=== PATIENT | male | born 1950 | race Caucasian/White ===

== ENCOUNTER 2016-10-04 18:26 | Inpatient (IN) | payer MEDICARE, OTHER ==
[~2016-10-04] VITALS: Ht 177.8 cm; Wt 119.9 kg
[2016-10-04 18:26] VITALS: BP 153/85
[~2016-10-04 18:26] MED LIST: ALBUTEROL2.5 MG/0.5 INH; ASPIR LOW81 MG PO; ASPIRIN81 M1 PO; ATARAX25 MG PO; B12,B-12,B 12500 MC1 PO; B121000 MCG/1 IM; BAYER ASPIRIN C81 MG PO; CARTIA XT120 MG PO; CIPROFLOXACIN500 MG PO; CYCLOBENZAPRINE10 MG PO; Cleocin150 MG PO; Clopidogrel75 MG PO; DIGOX0.125 MG PO; DIGOXIN0.125 MG PO; DILTIAZEM 24HR120 MG PO; DOXYCYCLINE100 M3 PO; DUONEB 3 MG/3 ML3 M1 INH; DUONEB 3 MG/3 ML3 M1 NEB; DURAGESIC75 MCG/HR TD; Duragesic 75 M75 MCG INTRADERM; FENTANYL75 MCG/HR TD; FINASTERIDE5 MG PO; FLEXERIL10 MG PO; FLOMAX0.4 MG PO; GABAPENTIN TAB600 MG PO; GEMFIBROZIL600 MG PO; GLIPIZIDE5 MG PO; HUMULIN R100 U/ML SC; HYDR25T PO; HYDROCODONE BIT1 T11 PO; IMDUR SA60 M1 PO; IMDUR30 MG PO; ISOSORBIDE30 MG PO; LANOXIN0.125 MG PO; LANTUS100 U/ML SC; LIPITOR40 MG PO; LISINOPRIL AND1 TA2 PO; LISINOPRIL HCTZ1 TA1 PO; LISINOPRIL/HCTZ1 TAB PO; LISINOPRIL10 MG PO; LOPRESSOR25 MG PO; LOPRESSOR50 MG PO; MACROBID100 M1 PO; METOPROLOL SR50 MG PO; METOPROLOL SUCC50 M1 PO; NEURONTIN300 MG PO; NITROSTAT0.4 MG SL; NOVOLOG FLEX100 U/ML SC; NOVOLOG10 ML SC; OXYCODONE10 MG PO; OXYCODONE5 M1 PO; OXYCONTIN10 MG PO; OXYGEN NAS; PLAVIX75 M1 PO; PREDNISONE10 M1 PO; PREDNISONE10 MG PO; PREDNISONE20 M1 PO; PREDNISONE5 MG PO; PRINIVIL10 MG PO; PROSCAR5 M1 PO; PROVENTIL0.09 MG/A1 INH; SIMVASTATIN40 MG PO; SYMBICORT1 AE1 INH; TAMSULOSIN HCL0.4 MG PO; TENORMIN25 MG PO; TOPROL XL100 MG PO; TORADOL10 MG PO; VICO10300 PO; VICODIN HP 6601 TA1 PO; VICODIN HP 6601 TAB PO; VITAMIN D32000 I1 PO; VITAMIN D32000 IU PO; ZETIA10 MG PO; ZOLOFT50 MG PO; ZOLPIDEM5 MG PO
[2016-10-04 18:59] LABS: BASO # 0.1 10*3/uL (0.0-0.1); BASO % 0.6 % (0.0-1.0); EOS # 0.4 10*3/uL (0.0-0.4); EOS % 4.4 % (1.0-4.0); HEMATOCRIT 43.4 % (42.0-52.0); HEMOGLOBIN 13.6 g/dl (14.0-18.0); LYMPH # 2.6 10*3/uL (1.3-4.4); LYMPH % 31.5 % (27.0-41.0); MEAN CELL VOLUME 89.3 fl (80.0-94.0); MEAN CORPUSCULAR HGB CONC 31.3 g/dl (33.0-37.0); MONO # 0.7 10*3/uL (0.1-1.0); MONO % 8.2 % (3.0-9.0); NEUT # 4.5 10*3/uL (2.3-7.9); NEUT % 55.1 % (47.0-73.0); PLATELET COUNT AUTOMATED 215 10*3/uL (130-400); RED BLOOD COUNT 4.86 10*6/uL (4.50-5.90); RED CELL DISTRI WIDTH 12.7 % (0-14.5); WHITE BLOOD COUNT 8.3 10*3/uL (4.8-10.8)
[2016-10-04 19:16] LABS: ALBUMIN 3.4 gm/dl (3.1-4.5); ALKALINE PHOSPHATASE 168 U/L (45-117); BILIRUBIN, TOTAL 0.8 mg/dl (0.2-1.0); BUN 12 mg/dl (7-24); CARBON DIOXIDE 34 mmol/L (21-32); CHLORIDE 102 mmol/L (98-107); EST GLOM FILT AFRICAN AMERICAN > 60 ml/min; GLUCOSE 162 mg/dL (65-99); POTASSIUM 4.1 mmol/L (3.5-5.1); SGOT/AST 28 IU/L (3-35); SGPT/ALT 35 U/L (12-78); SODIUM 142 mmol/L (136-145); TOTAL PROTEIN 6.9 gm/dL (6.4-8.2)
[2016-10-04 19:18] LABS: TROPONIN I < 0.015 ng/ml (<0.045)
[2016-10-04 22:00] VITALS: BP 162/78
[2016-10-04] MEDS ORDERED: LASIX40 MG PO (22:57)
[2016-10-04] MEDS ORDERED: TENORMIN50 MG PO (23:00)
[2016-10-04] MEDS ORDERED: METFORMIN500 MG PO (23:02)
[2016-10-04] MEDS ORDERED: NORCO 10-325 T1 EACH PO (23:09)
[2016-10-05] VITALS: BP 148/64
[2016-10-05 06:17] LABS: HEMOGLOBIN A1c 8.4 % (4.8-5.6)
[2016-10-05 06:40] LABS: BUN 13 mg/dl (7-24); CARBON DIOXIDE 31 mmol/L (21-32); CHLORIDE 97 mmol/L (98-107); CHOLESTEROL 141 mg/dL (<200); EST GLOM FILT AFRICAN AMERICAN > 60 ml/min; FREE T4 1.13 ng/dl (0.76-1.46); GLUCOSE 294 mg/dL (65-99); HDL CHOLESTEROL 48 mg/dl (40-60); LDL CHOLESTEROL 68 mg/dL (9-159); MAGNESIUM 1.9 mg/dL (1.5-2.1); PHOSPHOROUS 3.6 mg/dL (2.5-4.9); POTASSIUM 3.7 mmol/L (3.5-5.1); SODIUM 140 mmol/L (136-145); TRIGLYCERIDES 127 mg/dl (<150); VLDL CHOLESTEROL 25 mg/dL (6-40)
[2016-10-05 06:47] LABS: THYROID STIM HORMONE (HS) 0.696 uIU/ml (0.358-4.75)
[2016-10-05 06:50] LABS: BASO % 0.3 % (0.0-1.0); HEMATOCRIT 47.2 % (42.0-52.0); HEMOGLOBIN 15.1 g/dl (14.0-18.0); IG # 0.1 10*3/uL (0.0-0.1); LYMPH # 0.7 10*3/uL (1.3-4.4); LYMPH % 11.1 % (27.0-41.0); MEAN CELL VOLUME 88.9 fl (80.0-94.0); MEAN CORPUSCULAR HGB 28.4 pg (27.0-31.0); MEAN PLATELET VOLUME 10.4 fl (9.6-12.3); MONO % 0.6 % (3.0-9.0); NEUT # 5.4 10*3/uL (2.3-7.9); PLATELET COUNT AUTOMATED 234 10*3/uL (130-400); RED BLOOD COUNT 5.31 10*6/uL (4.50-5.90); RED CELL DISTRI WIDTH 12.7 % (0-14.5); WHITE BLOOD COUNT 6.2 10*3/uL (4.8-10.8)
[2016-10-05 07:10] LABS: PROTHROMBIN TIME 10.5 SECONDS (9.0-12.4)
[2016-10-05 07:22] LABS: FOLIC ACID 12.12 ng/mL (>5.38); VITAMIN D, 25-HYDROXY 38.3 ng/mL (30-100)
[2016-10-05 08:00] VITALS: BP 156/76
[2016-10-05 12:00] VITALS: BP 148/72
[2016-10-05 16:00] VITALS: BP 130/72
[2016-10-05 20:00] VITALS: BP 138/65
[2016-10-06] VITALS: BP 128/54
[2016-10-06 06:44] LABS: HEMATOCRIT 42.3 % (42.0-52.0); HEMOGLOBIN 13.4 g/dl (14.0-18.0); IG # 0.1 10*3/uL (0.0-0.1); LYMPH # 0.9 10*3/uL (1.3-4.4); LYMPH % 8.3 % (27.0-41.0); MEAN CELL VOLUME 88.3 fl (80.0-94.0); MEAN CORPUSCULAR HGB CONC 31.7 g/dl (33.0-37.0); MEAN PLATELET VOLUME 10.7 fl (9.6-12.3); MONO # 0.4 10*3/uL (0.1-1.0); MONO % 3.3 % (3.0-9.0); NEUT # 9.9 10*3/uL (2.3-7.9); NEUT % 87.9 % (47.0-73.0); PLATELET COUNT AUTOMATED 242 10*3/uL (130-400); RED BLOOD COUNT 4.79 10*6/uL (4.50-5.90); RED CELL DISTRI WIDTH 13.1 % (0-14.5); WHITE BLOOD COUNT 11.3 10*3/uL (4.8-10.8)
[2016-10-06 07:09] LABS: BUN 20 mg/dl (7-24); CARBON DIOXIDE 31 mmol/L (21-32); CHLORIDE 98 mmol/L (98-107); EST GLOM FILT AFRICAN AMERICAN > 60 ml/min; GLUCOSE 343 mg/dL (65-99); POTASSIUM 4.1 mmol/L (3.5-5.1); SODIUM 138 mmol/L (136-145)
[2016-10-06 08:00] VITALS: BP 126/74
[2016-10-06 12:00] VITALS: BP 163/75
[2016-10-06 16:00] VITALS: BP 133/75
[2016-10-06 20:00] VITALS: BP 124/50
[2016-10-07] VITALS: BP 136/53
[2016-10-07 07:04] LABS: BASO % 0.1 % (0.0-1.0); HEMATOCRIT 47.1 % (42.0-52.0); HEMOGLOBIN 14.8 g/dl (14.0-18.0); IG # 0.1 10*3/uL (0.0-0.1); LYMPH # 0.8 10*3/uL (1.3-4.4); LYMPH % 8.2 % (27.0-41.0); MEAN CELL VOLUME 89.2 fl (80.0-94.0); MEAN CORPUSCULAR HGB CONC 31.4 g/dl (33.0-37.0); MEAN PLATELET VOLUME 10.7 fl (9.6-12.3); MONO # 0.3 10*3/uL (0.1-1.0); MONO % 2.6 % (3.0-9.0); NEUT # 9.1 10*3/uL (2.3-7.9); NEUT % 88.4 % (47.0-73.0); PLATELET COUNT AUTOMATED 275 10*3/uL (130-400); RED BLOOD COUNT 5.28 10*6/uL (4.50-5.90); RED CELL DISTRI WIDTH 13.2 % (0-14.5); WHITE BLOOD COUNT 10.2 10*3/uL (4.8-10.8)
[2016-10-07 07:26] LABS: BUN 24 mg/dl (7-24); CARBON DIOXIDE 32 mmol/L (21-32); CHLORIDE 95 mmol/L (98-107); EST GLOM FILT AFRICAN AMERICAN > 60 ml/min; GLUCOSE 399 mg/dL (65-99); POTASSIUM 4.1 mmol/L (3.5-5.1); SODIUM 139 mmol/L (136-145)
[2016-10-07 08:00] VITALS: BP 132/72
[2016-10-07] MEDS ORDERED: LASIX40 MG PO (11:51)
[2016-10-07] MEDS ORDERED: DOXYCYCLINE100 M3 PO (11:51)
[2016-10-07 12:00] VITALS: BP 112/74
[2016-10-07] MEDS ORDERED: KLOR-CON M2020 ME1 PO (13:26)
[2016-10-07 16:00] VITALS: BP 120/54
== END 2016-10-07 16:54 | disposition home or self-care (01) | DRG 291 ==
LOC: ED 18:26 → EDHOLD 20:38 → 5E 20:38
PROVIDERS: Family Medicine; Hospitalist; Internal Medicine Hospice and Palliative Medicine; Registered Nurse
DX: I11.0 Hypertensive heart disease with heart failure (principal); J18.9 Pneumonia, unspecified organism; J96.21 Acute and chronic respiratory failure with hypoxia; J44.1 Chronic obstructive pulmonary disease with (acute) exacerbation; J44.0 Chronic obstructive pulmonary disease with (acute) lower respiratory infection; I50.33 Acute on chronic diastolic (congestive) heart failure; I25.10 Atherosclerotic heart disease of native coronary artery without angina pectoris; E78.2 Mixed hyperlipidemia; E11.65 Type 2 diabetes mellitus with hyperglycemia; M19.90 Unspecified osteoarthritis, unspecified site; M51.37 Other intervertebral disc degeneration, lumbosacral region; M88.9 Osteitis deformans of unspecified bone; E55.9 Vitamin D deficiency, unspecified; E11.40 Type 2 diabetes mellitus with diabetic neuropathy, unspecified; N40.0 Benign prostatic hyperplasia without lower urinary tract symptoms; E11.628 Type 2 diabetes mellitus with other skin complications; G51.0 Bell's palsy; E66.01 Morbid (severe) obesity due to excess calories; Z68.37 Body mass index [BMI] 37.0-37.9, adult; Z88.8 Allergy status to other drugs, medicaments and biological substances; Z91.030 Bee allergy status; Z79.4 Long term (current) use of insulin; Z88.0 Allergy status to penicillin; Z99.81 Dependence on supplemental oxygen; Z91.041 Radiographic dye allergy status; Z90.49 Acquired absence of other specified parts of digestive tract; Z95.818 Presence of other cardiac implants and grafts; Z83.3 Family history of diabetes mellitus; Z82.49 Family history of ischemic heart disease and other diseases of the circulatory system; Z86.73 Personal history of transient ischemic attack (TIA), and cerebral infarction without residual deficits; Z87.442 Personal history of urinary calculi; Z87.891 Personal history of nicotine dependence; Z79.84 Long term (current) use of oral hypoglycemic drugs; Z79.82 Long term (current) use of aspirin; Z79.899 Other long term (current) drug therapy

== ENCOUNTER → 2016-12-27 | Outpatient (CLI) | payer MEDICARE, OTHER ==
[~2016-12-27] MED LIST changes: +KLOR-CON M2020 ME1 PO; +LASIX40 MG PO; +METFORMIN500 MG PO; +NORCO 10-325 T1 EACH PO; +TENORMIN50 MG PO
== END | disposition home or self-care (01) ==
LOC: US 12:21
DX: M79.661 Pain in right lower leg (principal)

== ENCOUNTER 2018-03-09 21:24 | Inpatient (IN) | payer MEDICARE, OTHER ==
[~2018-03-09] VITALS: Ht 177.8 cm; Wt 130.3 kg
--- NOTE | ~2018-03-09 | PR ---
[place], [place] PROGRESS NOTE NAME: [id number] UNIT #: [id number] ROOM: 502 DOCTOR: BRENDA LYNN MD BIRTHDATE: [birth year] DOS: SUBJECTIVE: The patient is sitting in chair, breathing is comfortable, does not appear significantly worsened. He tolerated his IV fluids, which is now off. No exacerbation of CHF is noted. I do not see any notes from any other services today other than Cardiology. It does not appear that Pulmonary has been consulted despite his fairly significant COPD and chronic shortness of breath history. His last echocardiogram was from 12/31/2017, which revealed EF of 50%-55%, moderate LVH. OBJECTIVE: CURRENT VITAL SIGNS: 148/72, heart rate 96, respiratory rate 21, temperature 98.9. GENERAL: Chronically ill appearing, sitting in chair, in no acute distress. Speech is clear. Insight is cogent. LUNGS: Decreased bilaterally. Mild wheeze. CARDIOVASCULAR: Regular rate. No rub. Distant heart sounds. ABDOMEN: Obese, soft and nontender. Cannot appreciate organomegaly given habitus. EXTREMITIES: Chronic lower extremity edema because of chronic insufficiency in sitting position. SKIN: Without diffuse rashes. LABORATORY DATA AND DIAGNOSTICS: White blood cell count 8.1, hemoglobin 12.4, platelets 239. Sodium 143, potassium 3.6, chloride 97, bicarbonate 39, BUN 23, creatinine 1.03, glucose 258 down significantly from the 650 hannah. ASSESSMENT AND PLAN: Acute kidney injury, prerenal in nature, this has improved. Avoid diuretics. Intravenous fluids were given because of low blood pressure, high lactic acid and hyperosmolar state from glucose and osmotic diuresis. His chronic venous insufficiency is producing some of his edema as would some of the mildly low protein levels. I do suspect based on his urinalysis that he does not have any significant nephrotic range proteinuria or diabetic nephropathy. His creatinine has improved. His electrolytes are stable and his chronically elevated carbon dioxide is likely compensatory for disease. I would recommend pulmonary evaluation and optimization of any nebulizers or inhalers. He does not appear to have systolic congestive heart failure or cardiomyopathy. Some hypertensive changes are likely and likely exacerbated by his lung disease. His uncontrolled diabetes has improved and I did order a kidney stone analysis, which he had saved after passing it, I do not have those results yet. No further nephrologic recommendations at this time. [place], [place] PROGRESS NOTE NAME: ALANA RAMSAY UNIT #: [id number] ROOM: 502 DOCTOR: BRENDA LYNN MD BIRTHDATE: [birth year] BRENDA LYNN MD CM:PNTRANS 07 [phone] BRENDA LYNN MD 03/13/18 0114 interface
--- NOTE | ~2018-03-09 | PR ---
[place], [place] PROGRESS NOTE NAME: ALANA RAMSAY UNIT #: [id number] ROOM: 502 DOCTOR: BRENDA LYNN MD BIRTHDATE: [birth year] DOS: 03/13/2018 NEPHROLOGY PROGRESS NOTE TIME OF SERVICE: 11:15 a.m. SUBJECTIVE: Followup of acute kidney injury. The patient is feeling better. Creatinine has improved. OBJECTIVE: VITAL SIGNS: Blood pressures remained somewhat labile, but well controlled today, 124/70, afebrile, heart rate 70s, respiratory rate 18-20. GENERAL: Still reporting some difficulty breathing, has not seen a financial services consultant. No report back from the testing. Breathing is stable overall though. Chronically ill appearing, sitting in chair. EXTREMITIES: Lower extremities from chronic sitting and stasis are edematous, but stable. Anasarca stable. CHEST: Decreased breath sounds. No wheezing. CARDIOVASCULAR: Regular rate. No rub. ABDOMEN: Obese, soft, nontender. SKIN: Without diffuse rashes. NEUROLOGIC: Gross motor and sensation is intact. LABORATORIES AND DIAGNOSTICS: Sodium 145, potassium 3.9, chloride 99, bicarbonate 40, BUN 24, creatinine 0.96. White blood cell count 6.5, hemoglobin 12.5, platelets 259. ASSESSMENT AND PLAN: Acute kidney injury. This has improved. Support blood pressure. IV fluids are held. Given his chronic sitting nature, he has venous insufficiency and trying to do diuretics to edema free legs will be impossible. Nonpharmacologic control, Unna boots, etc., may be a help as well as more mobility optimizing lung function. Pulmonary evaluation reasonable. No other renal recommendations at this time. [place], [place] PROGRESS NOTE NAME: ALANA RAMSAY UNIT #: [id number] ROOM: 502 DOCTOR: BRENDA LYNN MD BIRTHDATE: [birth year] BRENDA LYNN MD CM:PNTRANS [id number] BRENDA LYNN MD 03/27/18 0951 interface
--- NOTE | ~2018-03-09 | PR ---
[place], [place] PROGRESS NOTE [id number] UNIT #: [id number] ROOM: 502 DOCTOR: BRENDA LYNN MD BIRTHDATE: [birth year] DOS: 03/11/2018 SUBJECTIVE: The patient was seen in renal followup of acute kidney injury. He did receive some IV fluids and his sugars are slowly improving. His creatinine is also improving from 1.46 down to 1.01. I only gave him a bit of IV fluids yesterday, but I think he needed given his uncontrolled glucose as well as his elevated lactate of 4.2 yesterday. Apparently, a recheck was not done. His calcium still a bit on the high side, but he is fairly immobile at 9.9. His urinalysis is negative for acute sediment. He was prerenal on his urine indices, though urine creatinine was not ordered by the resident. Electrolytes this morning are stable. His sugars are again coming down. His hemoglobin is stable and his white count is stable. PHYSICAL EXAMINATION: MOST RECENT VITAL SIGNS: 118/68, 97.9, 89, 16, 98% on 6 liters nasal cannula. GENERAL: Chronically ill appearing, obese gentleman, sitting in chair, using nebulizer. Speech is clear. Insight is normal and cogent. LUNGS: Decreased breath sounds bilaterally. Mild wheeze. CARDIOVASCULAR: Regular rate. No rub. Distant heart sounds. ABDOMEN: Obese, soft, nontender. I cannot appreciate any organomegaly given his habitus. EXTREMITIES: Some chronic lower extremity edema because of chronic venous insufficiency most likely and chronic sitting position. LABORATORIES AND DIAGNOSTICS: Reviewed in detail and pertinents are above. ASSESSMENT AND PLAN: Acute kidney injury, prerenal in nature. Avoid excessive diuretics. Intravenous fluids were given yesterday and can be held now. Support blood pressure is necessary. Avoid trying to diurese this gentleman to dry legs and edema-free legs. He has chronic venous insufficiency most likely and some medication-related edema most likely as well. His blood pressures are well controlled. If he is being diuresed some of those, may need to be reduced. His blood sugars were uncontrolled and are coming under better control now. Defer to the primary service. I will send for chemical analysis of his kidney stone that he passed and he was able to obtain. Suspect it was a calcium oxalate stone though based on its appearance. [place], [place] PROGRESS NOTE NAME: ALANA RAMSAY UNIT #: [id number] ROOM: 502 DOCTOR: BRENDA LYNN MD BIRTHDATE: [birth year] BRENDA LYNN MD CM:PNTRANS [id number] BRENDA LYNN MD 03/12/18 0118 interface
--- NOTE | ~2018-03-09 | EKG ---
[place], [place] ELECTROCARDIOGRAM REPORT NAME: ALANA RAMSAY UNIT #: [id number] ROOM: 502 DOCTOR: ANABEL DRAFT REPORT BIRTHDATE: [birth year] [facility] Test Date: 2018-03-09 Test Time: 21:47:33 Pat Name: ALANA RAMSAY Department: Room: [facility] Gender: M Harbour Master: Leila Reyes : 1950 Requested By: ERASMO GOMES Order Number: [id number] Reading MD: Chilo Rutherford MD Measurements Intervals [place] Rate: 107 P: 53 MI: 167 QRS: -13 QRSD: 100 T: 47 QT: 339 QTc: 453 Interpretive Statements Sinus tachycardia Left atrial enlargement RSR' in V1 or V2, right VCD or RVH Baseline wander in lead(s) V1 Compared to ECG 01/04/2018 09:19:13 Right ventricular hypertrophy now present RSR' in V1 or V2 now present Sinus rhythm no longer present Electronically Signed On 03-10-2018 10:51:14 PST by Chilo Rutherford MD CM:EKGRPT:ELECTROCARDIOGRAM REPORT 1051 ERASMO GOMES EPIPHANY DRAFT REPORT ERASMO GOMES
[~2018-03-09 21:24] MED LIST changes: +ANORO ELLIPTA1 EACH INH; +ATENOLOL50 M1 PO; +BIPAP; -DIGOX0.125 MG PO; +DIGOX125 MCG PO; +FUROSEMIDE80 MG PO; +HUMULIN R500 UNIT/1 SQ; +Ipratropium Brom3 ML INH; +LANTUS SOL100 UNIT/1 SQ
[2018-03-09 21:46] VITALS: BP 115/72
[2018-03-09 22:01] LABS: BASO % 0.6 % (0.0-1.0); EOS # 0.2 10*3/uL (0.0-0.4); EOS % 2.6 % (1.0-4.0); HEMATOCRIT 41.5 % (42.0-52.0); HEMOGLOBIN 12.9 g/dl (14.0-18.0); LYMPH % 27.4 % (27.0-41.0); MEAN CELL VOLUME 95.4 fl (80.0-94.0); MEAN CORPUSCULAR HGB 29.7 pg (27.0-31.0); MEAN CORPUSCULAR HGB CONC 31.1 g/dl (33.0-37.0); MEAN PLATELET VOLUME 10.2 fl (9.6-12.3); MONO # 0.6 10*3/uL (0.1-1.0); MONO % 8.2 % (3.0-9.0); NEUT # 4.3 10*3/uL (2.3-7.9); NEUT % 60.1 % (47.0-73.0); PLATELET COUNT AUTOMATED 199 10*3/uL (130-400); RED BLOOD COUNT 4.35 10*6/uL (4.50-5.90); WHITE BLOOD COUNT 7.2 10*3/uL (4.8-10.8)
--- NOTE | 2018-03-09 22:06 | NUR ---
LAB CALLED LA 3.2 CERAMIC PAINTER ANU NOTIFIED
[2018-03-09 22:12] LABS: ACT PARTIAL THROMBO TIME 22.1 SECONDS (20.8-31.5); INTERNATIONAL NORM RATIO 0.9 (2.0-3.5)
[2018-03-09 22:17] LABS: ALKALINE PHOSPHATASE 104 U/L (45-117); BUN 17 mg/dl (7-24); CHLORIDE 98 mmol/L (98-107); CREATININE 1.32 mg/dL (0.70-1.30); LIPASE 67 U/L (73-393); SGOT/AST 21 IU/L (3-35); SGPT/ALT 41 U/L (12-78); SODIUM 144 mmol/L (136-145); TOTAL PROTEIN 6.8 gm/dL (6.4-8.2); TROPONIN I 0.017 ng/ml (<0.045)
[2018-03-10] VITALS (7 sets, daily range): BP systolic 120–140; BP diastolic 63–74
--- NOTE | 2018-03-10 00:37 | NUR ---
PT STATES HAS LIST OF MEDS
--- NOTE | 2018-03-10 01:02 | NUR ---
PT REQUESTING FAN AND RECLINER AT BEDSIDE
--- NOTE | 2018-03-10 02:00 | NUR ---
A 67, admitted to , under the services of RADHA Saucedo DO with a diagnosis of CHF,HYPOXIA. Chief complaint is SHORTNESS OF BREATHE,SWEELING. Patient arrived via BED from ER. Monitor applied. Initial assessment completed. Vital signs taken and recorded. RADHA SAUCEDO DO notified of admission to the unit. Orders received. See assessment for past medical history, medications and allergies. Patient and/or family oriented to unit. [facility] visitation policy reviewed. Clothing/patient valuable form completed. YOLANDA ROE
--- NOTE | 2018-03-10 02:13 | NUR ---
ADMITTING RESIDENT AND FLOOR NURSE ADVISED OF PT EKG WITH ECTOPIC UNIFOCAL PVC WITH OCCASIONAL COUPLETS WHILE PT WAS STANDING TO URINATE
[2018-03-10] MEDS ORDERED: LANTUS SOL100 UNIT/1 SQ (02:46)
--- NOTE | 2018-03-10 03:16 | NUR ---
DR GARCIA NOTIFIED MED REC UP TO DATE PER PATIENT HOME LIST.
[2018-03-10 05:53] LABS: BASO % 0.5 % (0.0-1.0); HEMATOCRIT 41.7 % (42.0-52.0); HEMOGLOBIN 12.7 g/dl (14.0-18.0); LYMPH # 0.7 10*3/uL (1.3-4.4); LYMPH % 12.2 % (27.0-41.0); MEAN CELL VOLUME 95.9 fl (80.0-94.0); MEAN CORPUSCULAR HGB 29.2 pg (27.0-31.0); MEAN CORPUSCULAR HGB CONC 30.5 g/dl (33.0-37.0); MEAN PLATELET VOLUME 10.3 fl (9.6-12.3); MONO # 0.1 10*3/uL (0.1-1.0); NEUT # 4.7 10*3/uL (2.3-7.9); NEUT % 83.7 % (47.0-73.0); PLATELET COUNT AUTOMATED 195 10*3/uL (130-400); RED BLOOD COUNT 4.35 10*6/uL (4.50-5.90); RED CELL DISTRI WIDTH 14.2 % (0-14.5); WHITE BLOOD COUNT 5.6 10*3/uL (4.8-10.8)
--- NOTE | 2018-03-10 06:07 | NUR ---
SPOKE TO BRAXTON AT DR LYNN'S ANSWERING SERVICE REGARDING CONSULT. SHE WILL NOTIFY PHYSICIAN.
[2018-03-10 06:10] LABS: ALBUMIN 3.2 gm/dl (3.1-4.5); ALKALINE PHOSPHATASE 111 U/L (45-117); BUN 24 mg/dl (7-24); CHLORIDE 90 mmol/L (98-107); CREATININE 1.46 mg/dL (0.70-1.30); PHOSPHOROUS 4.2 mg/dL (2.5-4.9); POTASSIUM 4.5 mmol/L (3.5-5.1); SGOT/AST 20 IU/L (3-35); SGPT/ALT 44 U/L (12-78); SODIUM 139 mmol/L (136-145); TOTAL PROTEIN 7.4 gm/dL (6.4-8.2)
--- NOTE | 2018-03-10 06:12 | NUR ---
DR GARCIA NOTIFIED OF BLOOD GLUCOSE 655. PER DR GARCIA COVER PATIENT PER SLIDING SCALE PROTOCOL. NO FURTHER ORDERS.
[2018-03-10 06:13] LABS: TROPONIN I < 0.015 ng/ml (<0.045)
[2018-03-10] MEDS ORDERED: NOVOLOG FL100 UNIT/1 SQ (06:27)
--- NOTE | 2018-03-10 08:18 | NUR ---
PATIENT C/O BACK AND LEFT HIP PAIN. RATED 8/10 ON PAIN SCALE. MEDICATED WITH NORCO PER PRN ORDER. WILL CONTINUE TO MONITOR.
--- NOTE | 2018-03-10 09:30 | NUR ---
PATIENT SITTING UP IN CHAIR. NO FURTHER C/O PAIN AT THIS TIME. NORCO EFFECTIVE. WILL CONTINUE TO MONITOR.
[2018-03-10 15:02] LABS: BILIRUBIN NEGATIVE (NEGATIVE); BLOOD TRACE-INTACT (NEGATIVE); CLARITY SL CLOUDY (CLEAR); COLOR YELLOW (YELLOW); GLUCOSE 3+ (NEGATIVE); KETONE TRACE (NEGATIVE); LEUKO ESTERASE NEGATIVE (NEGATIVE); NITRITE NEGATIVE (NEGATIVE); SPECIFIC GRAVITY <= 1.005 (1.005-1.030); UROBILINOGEN 0.2 E.U./dl (0.2-1.0)
[2018-03-10 15:10] LABS: BACTERIA TRACE; EPITHELIAL CELLS 0-2; WBC 0-2 wbc/hpf (0-5)
[2018-03-11] VITALS: BP 113/57
--- NOTE | 2018-03-11 01:46 | NUR ---
24 HR chart check completed.
--- NOTE | 2018-03-11 04:00 | NUR ---
PATIENT SLEEPING IN RECLINER. DENIES COMPLAINTS OF PAIN OR DISCOMFORT. AROUSES TO VERBAL STIMULI. RESPIRATION REGULAR AND NON-LABORED WITH OXYGEN ON AT 6L VIA N/C. NO SIGNS OR SYMPTOMS OF DISTRESS NOTED. WILL CONTNUE TO MONITOR. CALL LIGHT IN REACH.
[2018-03-11 06:27] LABS: BASO % 0.1 % (0.0-1.0); HEMATOCRIT 39.8 % (42.0-52.0); HEMOGLOBIN 12.1 g/dl (14.0-18.0); LYMPH # 1.2 10*3/uL (1.3-4.4); LYMPH % 13.9 % (27.0-41.0); MEAN CELL VOLUME 95.7 fl (80.0-94.0); MEAN CORPUSCULAR HGB 29.1 pg (27.0-31.0); MEAN CORPUSCULAR HGB CONC 30.4 g/dl (33.0-37.0); MEAN PLATELET VOLUME 10.3 fl (9.6-12.3); MONO # 0.6 10*3/uL (0.1-1.0); MONO % 6.4 % (3.0-9.0); NEUT # 6.9 10*3/uL (2.3-7.9); PLATELET COUNT AUTOMATED 223 10*3/uL (130-400); RED BLOOD COUNT 4.16 10*6/uL (4.50-5.90); RED CELL DISTRI WIDTH 14.6 % (0-14.5); WHITE BLOOD COUNT 8.7 10*3/uL (4.8-10.8)
[2018-03-11 07:02] LABS: CHLORIDE 93 mmol/L (98-107); POTASSIUM 4.1 mmol/L (3.5-5.1); SODIUM 139 mmol/L (136-145)
[2018-03-11 07:05] LABS: BUN 23 mg/dl (7-24); CREATININE 1.01 mg/dL (0.70-1.30)
[2018-03-11 08:00] VITALS: BP 118/68
--- NOTE | 2018-03-11 08:59 | NUR ---
PATIENT MEDICATED FOR C/O BACK AND HIP PAIN 10/21. WILL MONITOR.
--- NOTE | 2018-03-11 09:50 | NUR ---
PATIENT STATED THAT HE WANTED HIS O2 INCREASE BECAUSE HE FELT SOB. P.OX AT THIS TIME =97-98% ON 6LPM NC, INFORMED OF RFEADING AND EDUCATED ON O2 USE. PATIENT WAS COMFORTABLY AFTER BEING TOLD OXYGEN STATUS.
--- NOTE | 2018-03-11 09:59 | NUR ---
NORCO EFFECTIVE FOR BACK/HIP PAIN.
--- NOTE | 2018-03-11 13:00 | NUR ---
KIDNEY STONE SPECIMEN SENT TO LAB.
[2018-03-11 16:00] VITALS: BP 147/68
[2018-03-11 20:00] VITALS: BP 134/64
[2018-03-12] VITALS: BP 140/79
--- NOTE | 2018-03-12 00:54 | NUR ---
24 HR chart check completed.
--- NOTE | 2018-03-12 01:20 | NUR ---
PATIENT IN RECLINING CHAIR SLEEPING AT THIS TIME. NO SIGNS OR SYMPTOMS OF DISTRESS NOTED. RESPIRATIONS REGULAR AND NON-LABORED ON 6L N/C. AROUSES TO VERBAL STIMULI. DENIES COMPLAINTS OF PAIN OR DISCOMFORT. WILL CONTINUE TO MONITOR. CALL LIGHT IN REACH.
--- NOTE | 2018-03-12 07:05 | NUR ---
BEDSIDE REPORT OBTAINED FROM DELBERT-RN. PATIENT IS AWAKE/ALERT, SITTING UP IN RECLINER. PATIENT VOICED NO COMPLAINTS. NO S&S OF DISTRESS NOTED, RESP ARE ERND ON O2 6LPM NC. RECLINER IS LOCKED, CALL LIGHT LEFT WITHIN REACH.
[2018-03-12 07:06] LABS: BASO % 0.2 % (0.0-1.0); HEMATOCRIT 40.1 % (42.0-52.0); HEMOGLOBIN 12.4 g/dl (14.0-18.0); LYMPH # 1.4 10*3/uL (1.3-4.4); LYMPH % 17.4 % (27.0-41.0); MEAN CELL VOLUME 95.2 fl (80.0-94.0); MEAN CORPUSCULAR HGB 29.5 pg (27.0-31.0); MEAN CORPUSCULAR HGB CONC 30.9 g/dl (33.0-37.0); MONO # 0.5 10*3/uL (0.1-1.0); MONO % 6.3 % (3.0-9.0); NEUT # 6.1 10*3/uL (2.3-7.9); PLATELET COUNT AUTOMATED 239 10*3/uL (130-400); RED BLOOD COUNT 4.21 10*6/uL (4.50-5.90); RED CELL DISTRI WIDTH 14.7 % (0-14.5); WHITE BLOOD COUNT 8.1 10*3/uL (4.8-10.8)
[2018-03-12 07:30] LABS: BUN 23 mg/dl (7-24); CHLORIDE 97 mmol/L (98-107); CREATININE 1.03 mg/dL (0.70-1.30); POTASSIUM 3.6 mmol/L (3.5-5.1); SODIUM 143 mmol/L (136-145)
[2018-03-12 08:00] VITALS: BP 132/76
--- NOTE | 2018-03-12 08:51 | NUR ---
PATIENT MEDICATED WITH NORCO FOR C/O BACK/HIP PAIN 08/21. WILL MONITOR.
--- NOTE | 2018-03-12 09:51 | NUR ---
NORCO EFFECTIVE FOR BACK/HIP PAIN.
[2018-03-12 12:00] VITALS: BP 128/64
--- NOTE | 2018-03-12 12:30 | NUR ---
PATIENT REQUESTED FRO NURSE TO COME TO ROOM, STATED HE WAS SHORT OF BREATH. PULSE OX =90% ON 6LPM NC. PATIENT STATED HE WAS EATING AND THATS WHEN IT HAPPENED. BREATHING EXERCISES COMPLETED, P.OX INCREASED TO 94% ON 6LPM. PATIENT EDUCATED ON BREATHING EXERCISES, STATED UNDERSTANDING.
[2018-03-12 16:00] VITALS: BP 148/72
[2018-03-12 20:00] VITALS: BP 149/71
[2018-03-13] VITALS: BP 126/69
--- NOTE | 2018-03-13 06:37 | NUR ---
PHYSICAL THERAPY Nursing screen received. PT orders also received. Thank you. Cheryl Sr,PT
[2018-03-13 06:40] LABS: BASO % 0.5 % (0.0-1.0); EOS # 0.1 10*3/uL (0.0-0.4); EOS % 0.9 % (1.0-4.0); HEMOGLOBIN 12.5 g/dl (14.0-18.0); LYMPH # 1.9 10*3/uL (1.3-4.4); LYMPH % 28.9 % (27.0-41.0); MEAN CELL VOLUME 96.5 fl (80.0-94.0); MEAN CORPUSCULAR HGB 29.4 pg (27.0-31.0); MEAN CORPUSCULAR HGB CONC 30.5 g/dl (33.0-37.0); MEAN PLATELET VOLUME 10.3 fl (9.6-12.3); MONO # 0.6 10*3/uL (0.1-1.0); MONO % 8.5 % (3.0-9.0); NEUT # 3.8 10*3/uL (2.3-7.9); NEUT % 59.3 % (47.0-73.0); NUCLEATED RED BLOOD CELL 0.5 % (0.0-0.0); PLATELET COUNT AUTOMATED 259 10*3/uL (130-400); RED BLOOD COUNT 4.25 10*6/uL (4.50-5.90); RED CELL DISTRI WIDTH 14.7 % (0-14.5); WHITE BLOOD COUNT 6.5 10*3/uL (4.8-10.8)
[2018-03-13 07:06] LABS: ALBUMIN 3.2 gm/dl (3.1-4.5); ALKALINE PHOSPHATASE 97 U/L (45-117); BUN 24 mg/dl (7-24); CHLORIDE 99 mmol/L (98-107); CREATININE 0.96 mg/dL (0.70-1.30); POTASSIUM 3.9 mmol/L (3.5-5.1); SGOT/AST 39 IU/L (3-35); SGPT/ALT 50 U/L (12-78); SODIUM 145 mmol/L (136-145); TOTAL PROTEIN 6.8 gm/dL (6.4-8.2)
--- NOTE | 2018-03-13 07:48 | NUR ---
May convert patient to PO azithromycin if clinically feasible - all criteria have been met for IV to PO conversion. Nash Moncada, PharmD, h
[2018-03-13 08:00] VITALS: BP 124/70
--- NOTE | 2018-03-13 09:20 | NUR ---
Occupational Therapy evaluation completed on 5 with full eval to follow. Precautions include fall risk, SOB with min exertion, wh walker use, O2 dep. Recommend OT per POC and SNF to enable return home with family. Patient is moderate complexity level 30789 via chart review, testing and evaluation. Thank you for this referral. Tiara Quevedo OTR/L
--- NOTE | 2018-03-13 09:43 | NUR ---
PHYSICAL THERAPY PAtient evaluated on 5, full evaluation to follow. Continue with PT as per plan of care with fall, 02 and acute debility precautions. Recommend SNF. PAtient is moderate complexity via chart review,tests and evaluation: 36533. Thank you for this referral. Cheryl Sr,PT
--- NOTE | 2018-03-13 10:17 | NUR ---
PATIENT REQUESTED NORCO FOR BACK/HIP PAIN 08/21. WILL MONITOR
--- NOTE | 2018-03-13 11:17 | NUR ---
NORCO EFFECTIVE FOR BACK/HIP PAIN.
--- NOTE | 2018-03-13 11:39 | NUR ---
Glue Mounter Operator in to talk to patient. Patient states lives at HOME with . There are NO steps in the home. Physician: Ishaan PEREZ [facility] NONE Patient's level of ADLs: MODERATE ASSIST Patient has working utilities: YES DME: [facility] Follow-up physician's appointment after d/c: WILL BE MADE BY HOSPTIALIST NURSE DIRECTOR ON DISCHAGE Does patient want to access PORTAL?: NO Discharge plan PT LIVES AT HOME WITH HIS BUT STATES HE WANTS TO GO TO SKILLED FACILITY FOR REHAB. PT PROVIDED A LIST OF FACILITIES AND CHOSE [facility]. WILL FAX REFERRAL. FRONT SERVICES AGENT WILL CONTINUE TO FOLLOW.. OSCAR SMITH
[2018-03-13 12:00] VITALS: BP 144/65
--- NOTE | 2018-03-13 12:20 | NUR ---
REFERRAL FAXED TO [facility].
--- NOTE | 2018-03-13 12:38 | NUR ---
SPO2 92-96% ON 6LNC
[2018-03-13 16:00] VITALS: BP 142/73
[2018-03-13 20:00] VITALS: BP 146/64
[2018-03-14] VITALS: BP 127/72
[2018-03-14 06:33] LABS: BASO % 0.6 % (0.0-1.0); EOS # 0.1 10*3/uL (0.0-0.4); EOS % 1.5 % (1.0-4.0); HEMATOCRIT 41.9 % (42.0-52.0); HEMOGLOBIN 12.8 g/dl (14.0-18.0); LYMPH # 1.9 10*3/uL (1.3-4.4); LYMPH % 27.8 % (27.0-41.0); MEAN CELL VOLUME 95.4 fl (80.0-94.0); MEAN CORPUSCULAR HGB 29.2 pg (27.0-31.0); MEAN CORPUSCULAR HGB CONC 30.5 g/dl (33.0-37.0); MONO # 0.5 10*3/uL (0.1-1.0); MONO % 7.9 % (3.0-9.0); NEUT % 59.7 % (47.0-73.0); NUCLEATED RED BLOOD CELL 0.4 % (0.0-0.0); PLATELET COUNT AUTOMATED 252 10*3/uL (130-400); RED BLOOD COUNT 4.39 10*6/uL (4.50-5.90); RED CELL DISTRI WIDTH 14.7 % (0-14.5); WHITE BLOOD COUNT 6.7 10*3/uL (4.8-10.8)
--- NOTE | 2018-03-14 07:05 | NUR ---
BEDSIDE REPORT OBTAINED FROM MONICA-RN. PATIENT APPEARS TO BE ASLEEP, EYES CLOSED. NO S&S OF DISTRESS NOTED, RESP ARE ERND ON O2 6LPM NC. BED IS LOCKED IN LOWEST POSITION. CALL LIGHT LEFT WITHIN REACH.
[2018-03-14 07:07] LABS: BUN 20 mg/dl (7-24); CHLORIDE 99 mmol/L (98-107); CREATININE 0.87 mg/dL (0.70-1.30); POTASSIUM 3.6 mmol/L (3.5-5.1); SODIUM 143 mmol/L (136-145)
[2018-03-14 08:00] VITALS: BP 138/60
--- NOTE | 2018-03-14 09:00 | NUR ---
PATIENT REQUESTED NORCO FOR C/O 8/ PAIN TO BACK/HIPS. WILL MONITOR.
--- NOTE | 2018-03-14 10:00 | NUR ---
NORCO EFFECTIVE FOR BACK/HIP PAIN.
--- NOTE | 2018-03-14 11:04 | NUR ---
PHYSICAL THERAPY Patient was approached several times for therapy visit this morning and was eating first attempt, on BSC second attempt and requested to be seen this pm upon final attmept. Will continue this pm per POC as able. Calvin Mosquera, TEACHER OF FAMILY AND CONSUMER SCIENCE
[2018-03-14 12:00] VITALS: BP 129/74
--- NOTE | 2018-03-14 13:10 | NUR ---
PHYSICAL THERAPY Patient seen this pm 1:1 for therapy visit and was sitting up in bedside chair upon therapist arrival. Patient presented with continuous O2-6L via NC and increased B LE edema. Patient voices LE stiffness along with mild pain and completed several sit to stand transfers, Min A, demonstrating "rocking" motion. Patient tolerated 40 seconds static stand with use of wh walker standing support until quick onset of fatigue / SOB. Patient received v/c for purse lip breathing technique and was also able to ambulate 10'x 1, CGA/Min A, demonstrating "waddling" gait pattern. Patient returned to bedside chair and remained with call light, tray table and telephone. Will continue per POC as tolerated, total treatment time 17 minutes. Calvin Mosquera, AIR ANTISUBMARINE OFFICER
[2018-03-14 16:00] VITALS: BP 151/76
[2018-03-14 20:00] VITALS: BP 143/69
--- NOTE | 2018-03-14 20:00 | NUR ---
SITTING IN RECLINER. LUNGS DIMINISHED WITH MINIMAL AIR MOVEMENT. PULSE OX 95% ON 6L. BLE EDEMA, ENCOURAGED TO ELEVATED. CALL LIGHT WITHIN REACH. NO VOICED COMPLAINTS
--- NOTE | 2018-03-14 20:20 | NUR ---
24 HR chart check completed.
[2018-03-15] VITALS: BP 134/71
--- NOTE | 2018-03-15 | NUR ---
SLEEPING IN RECLINER, LEGS ELEVATED. RESPIRATIONS EASY. VSS. CALL LIGHT WITHIN REACH
--- NOTE | 2018-03-15 03:00 | NUR ---
SLEEPING IN RECLINER. RESPIRATIONS EASY. O2 IN USE. CALL LIGHT WITHIN REACH.
--- NOTE | 2018-03-15 06:00 | NUR ---
SLEPT THROUGHOUT NIGHT IN RECLINER. NO DISTRESS NOTED. RESPIRATIONS EASY. O2 IN USE AT 6L. CALL LIGHT WITHIN REACH. NO VOICED COMPLAINTS THIS SHIFT
--- NOTE | 2018-03-15 06:17 | NUR ---
REQUESTED AND RECEIVED NORCO PER PRN ORDER FOR COMPLAINTS OF LOWER BACK AND LEFT FLANK PAIN RATING A 7. CALL LIGHT WITHIN REACH. WILL MONITOR FOR EFFECTIVENESS
[2018-03-15 06:38] LABS: BASO # 0.1 10*3/uL (0.0-0.1); BASO % 0.8 % (0.0-1.0); EOS # 0.1 10*3/uL (0.0-0.4); EOS % 1.5 % (1.0-4.0); HEMATOCRIT 39.6 % (42.0-52.0); HEMOGLOBIN 12.4 g/dl (14.0-18.0); LYMPH # 1.8 10*3/uL (1.3-4.4); LYMPH % 24.6 % (27.0-41.0); MEAN CELL VOLUME 94.5 fl (80.0-94.0); MEAN CORPUSCULAR HGB 29.6 pg (27.0-31.0); MEAN CORPUSCULAR HGB CONC 31.3 g/dl (33.0-37.0); MONO # 0.5 10*3/uL (0.1-1.0); MONO % 7.1 % (3.0-9.0); NEUT # 4.7 10*3/uL (2.3-7.9); NEUT % 63.2 % (47.0-73.0); NUCLEATED RED BLOOD CELL 0.4 % (0.0-0.0); PLATELET COUNT AUTOMATED 231 10*3/uL (130-400); RED BLOOD COUNT 4.19 10*6/uL (4.50-5.90); RED CELL DISTRI WIDTH 14.6 % (0-14.5); WHITE BLOOD COUNT 7.4 10*3/uL (4.8-10.8)
[2018-03-15 07:01] LABS: BUN 19 mg/dl (7-24); CHLORIDE 100 mmol/L (98-107); POTASSIUM 3.3 mmol/L (3.5-5.1); SODIUM 139 mmol/L (136-145)
--- NOTE | 2018-03-15 07:32 | NUR ---
INITIAL ASSESSMENT COMPLETE.RESPS EASY ON 2LNC,SPO2 96%.BP OBTAINED. PT VOICES NO C/O.DENIES PAIN.BS X4 QUADS,NORMO.PT STABLE AT THIS TIME.CALL LIGHT IN REACH.
[2018-03-15 08:00] VITALS: BP 150/78
--- NOTE | 2018-03-15 11:18 | NUR ---
Patient resting quietly up in chair with no c/o discomfort. Respirations easy and regular. on 6lnc.Vital signs stable. No distress noted. visiting at bedside JEREMIAS MURILLO
--- NOTE | 2018-03-15 11:20 | NUR ---
patient updates faxed to [facility]. Patient will be accepted once his oxygen level is reduced to 5 liters or less and is no longer on the IV solumedrol.
--- NOTE | 2018-03-15 11:21 | NUR ---
WAITING FOR ACCEPTANCE TO [facility].
[2018-03-15 12:00] VITALS: BP 133/69
--- NOTE | 2018-03-15 13:02 | NUR ---
SPO2 94% ON 5LNC PER GAYLA VILA RT. TOLERATING WELL. NOTIFIED MAGALIE MOODY WHILE SHE ROUNDED ON FLOOR.
--- NOTE | 2018-03-15 14:32 | NUR ---
DECREASED PT O2 FROM 6LNC TO 5LNC PER MAGALIE MOODY'S ORDER.PT TOLERATED WELL. INFORMED ,PT UNAWARE PER 'S WISH SO PT WILL NOT PANIC.
--- NOTE | 2018-03-15 14:50 | NUR ---
PHYSICAL THERAPY Patient was approached several times this pm for therapy visit and was eating late lunch, then receiving breathing treatment upon therapist arrival each attmept. Patient not seen this date due to various patient care issues. Calvin Mosquera, FERMENTATION MANAGER
--- NOTE | 2018-03-15 15:21 | NUR ---
OT NOTE Pt was seen this P.M. 1:1 for 18 minute OT session. Upon arrival pt was sitting upright in recliner, pt identified by name and . Pt had no complaints at this time and presented to therapy with continous 5L-O2 via NC which he remained on throughout entire session. Pt completed sit to stand transfers from chair level with Josie while pushing off arm rest. Challenged pt's static standing tolerance needed for increased I in self care tasks and functional transfers, pt was able to tolerate aprox 50 sec, 45 sec, and 60 seconds before sitting due to SOB. Pt required constant education while both standing and sitting to correct his posture to improve breathing. Pt required seated rest breaks in between of aprox 2-3 minutes before trying again. Educated pt throughout on breathing techniques. Pt was left sitting upright in recliner with call light in hand, tray table in place, and pt's at bedside. Continue with rec D/C plan to SNF. ABRAN Sinclair
[2018-03-15 16:00] VITALS: BP 153/67
--- NOTE | 2018-03-15 17:50 | NUR ---
PT CALM NOW AND COOPERATIVE. LESS TEARFUL AND AKNOWLEDGES PREVIOUS DISCUSSION REGARDING PAIN MEDS. PT COMPLIANT AT THIS TIME. I INFORMED HER HER PAIN MEDS WERE NOT DUE UNTIL 6 PM.
[2018-03-15 20:00] VITALS: BP 138/69
--- NOTE | 2018-03-15 21:12 | NUR ---
ASSESSMENT COMPLETE ON PT AT THIS TIME. PT SITTING UP IN CHAIR BESIDE BED, ALERT ORIENTED AND PLEASANT MOOD. PT C/O PAIN DUE TO PASSING KIDNEY STONES. WILL MEDICATE PT PER ORDERS. LUNGS DIMINISHED THROUGHOUT. BILATERAL LOWER EXTREMITIES EDEMATOUS. PT RESPIRATIONS EASY AND UNALBORED AT THIS TIME. ALL NEEDS MET, ALL SAFETY MEASURES IN PLACE. CALL LIGHT IN REACH.
--- NOTE | 2018-03-15 21:37 | NUR ---
PT C/O PAIN D/T PASSING OF KIDNEY STONES, RATES PAIN 8/10. NORCO GIVEN AT THIS TIME. WILL MONITOR FOR EFFECTIVENESS. CALL LIGHT IN REACH.
[2018-03-15 21:53] VITALS: BP 140/82
--- NOTE | 2018-03-15 22:37 | NUR ---
NORCO EFFECTIVE PER PT. WILL CONTINUE TO MONITOR FOR PAIN AND PASSING OF KIDNEY STONES. PT SITTING UP IN CHAIR AT THIS TIME. ALL SAFETY MEASURES IN PLACE. SUPPLEMENTAL OXYGEN IN PLACE. RESPIRATIONS EASY. CALL LIGHT IN REACH.
[2018-03-16] VITALS: BP 114/64
--- NOTE | 2018-03-16 05:30 | NUR ---
PT C/O PAIN RELATED TO PASSING OF KIDNEY STONES. NORCO GIVEN AT THIS TIME. WILL MONITOR FOR EFFECTIVENESS. PT SITTING UP IN RECLINER BESIDE BED. CALL LIGHT IN REACH.
--- NOTE | 2018-03-16 06:36 | NUR ---
KIMBER EFFECTIVE PER PT.
[2018-03-16 08:00] VITALS: BP 122/64
--- NOTE | 2018-03-16 08:15 | NUR ---
PHYSICAL THERAPY Patient seen this am 1:1 for therapy visit and was sitting up in bedside chair upon therapist arrival. Patient presented with continuous O2-6L via NC, increased B foot edema and voices 4/10 B LE pain / discomfort. Patient performed several sit to stand transfers from low chair surface, Min/CGA, demonstrating slow initial rise and mild SOB. Patient tolerated 2.5 minutes of static stand, use of wh walker support and was happy with his progress this session. Patient HR 73 bpm, SpO2 93Y prior to treatment and post HR 87 bpm, SpO2 88%. Patient instructed on purse lip breathing technique and following several minutes returned to baseline HR / SpO2. Patient remained in bedside chair with call light, tray table and telephoe awaiting breakfast. Will continue per POC as tolerated, total treatment time 13 minutes. Calvin Mosquera, ANIMAL CARE SPECIALIST
--- NOTE | 2018-03-16 11:50 | NUR ---
Pt c/o shortness of breath. Spo2 90% on 5LNC. Demanding O2 to be turned up to 6LNC.pt anxious and resps are labored. increased O2 to 6LNC per pt request. pt calmed down a little but spo2 was only 92% on 6LNC.Encouraged pt to put Trilogy Bipap on and wear it and i would notify Dr Romero.
[2018-03-16 12:00] VITALS: BP 140/97
[2018-03-16] MEDS ORDERED: PREDNISONE10 MG PO (12:45)
--- NOTE | 2018-03-16 13:42 | NUR ---
OT NOTE Pt was seen this P.M. 1:1 for 15 minute OT session. Upon arrival pt was sitting upright in recliner, pt identified by name and . Pt had no complaints at this time and presented to therapy with continous 5L-O2 via NC which he remained on throughout entire session. Pt completed multiple sit to stand transfers from chair level with Josie and proper hand placement for increased I and improved technique. Challenged pt's static standing tolerance needed for increased I in self care tasks and functional transfers, pt was able to tolerate aprox 60 sec, 30 sec, and 60 seconds before sitting due to fatigue. Pt was left sitting upright in recliner, with call light in hand, tray table in place and phone in reach. Continue with rec D/C plan to SNF. SUSANA Sinclair/Renzo
--- NOTE | 2018-03-16 14:03 | NUR ---
DR CULVER CAME AND SPOKE WITH THE PT.
--- NOTE | 2018-03-16 14:25 | NUR ---
HOME O2 ASSESSMENT: PRE BP: 133/63, HR 90, RR 18, PULSE OX 86% ON ROOM AIR AFTER 5 MINUTES AT REST. PLACED 3 L/M ON PATIENT, SAT >92% AT REST. HAD PATIENT STAND UP AND MARCH IN PLACE, SAT DECREASED TO 72% ON 3 L/M, 83% ON 4 L/M, 87% ON 5 L/M, 93% ON 6 L/M. VERY SLOW TO RECOVER. POST BP: 133/63, HR 95, RR 20, PULSE OX 95% ON 6 L/M. PATIENT GIVEN AEROSOL RX AND PLACED ON TRILOGY. DR. CULVER AND RN NOTIFIED.
--- NOTE | 2018-03-16 15:02 | NUR ---
PT REQUESTED TO SPEAK TO ASPHALT RAKER AND I NOTIFIED DEANNA.
[2018-03-16 16:00] VITALS: BP 149/86
[2018-03-16 20:00] VITALS: BP 137/65
[2018-03-17] VITALS: BP 133/62
--- NOTE | 2018-03-17 05:25 | NUR ---
PATIENT BLOOD SUGAR 86. PATIENT REQUESTING ORANGE JUICE. STATES HE FEELS DIZZY
[2018-03-17 06:33] LABS: BASO % 0.5 % (0.0-1.0); EOS # 0.1 10*3/uL (0.0-0.4); EOS % 1.1 % (1.0-4.0); HEMATOCRIT 40.1 % (42.0-52.0); LYMPH # 2.3 10*3/uL (1.3-4.4); LYMPH % 27.9 % (27.0-41.0); MEAN CELL VOLUME 95.2 fl (80.0-94.0); MEAN CORPUSCULAR HGB 28.5 pg (27.0-31.0); MEAN CORPUSCULAR HGB CONC 29.9 g/dl (33.0-37.0); MEAN PLATELET VOLUME 10.1 fl (9.6-12.3); MONO # 0.6 10*3/uL (0.1-1.0); MONO % 7.4 % (3.0-9.0); NEUT % 60.8 % (47.0-73.0); PLATELET COUNT AUTOMATED 277 10*3/uL (130-400); RED BLOOD COUNT 4.21 10*6/uL (4.50-5.90); WHITE BLOOD COUNT 8.2 10*3/uL (4.8-10.8)
[2018-03-17 06:43] LABS: CREATININE 0.73 mg/dL (0.70-1.30)
[2018-03-17 12:00] VITALS: BP 139/78
--- NOTE | 2018-03-17 12:45 | NUR ---
OT NOTE Attempted to see pt this P.M. for OT session and upon arrival pt was eating his lunch. Will check back at a later time/date. SUSANA Sinclair/Renzo
--- NOTE | 2018-03-17 12:48 | NUR ---
patient doesn't meet all LTACH criteria, patient and asked for referral to [facility] [place]. Contacted facility and faxed referral, waiting on review.
--- NOTE | 2018-03-17 13:06 | NUR ---
Notified [facility] to hold on this original referral as Patient has requested to be referred to the respiratory wing at [facility]. Referral was faxed, currently waiting on review.
--- NOTE | 2018-03-17 13:10 | NUR ---
Hospital exemption changed to [facility]
--- NOTE | 2018-03-17 14:15 | NUR ---
PHYSICAL THERAPY I stopped in pts room and pt was sleeping. Pt requests I leave him rest as he has been aggitated and having a hard time breathing and he just got settled. Pt states he may possibly go home later today or tomorrow. Jeanine Garcia [id number]
--- NOTE | 2018-03-17 14:58 | NUR ---
Patient accepted to [facility], 3 night stay completed, hospital exemption complete, can go when medically stable for discharge.
--- NOTE | 2018-03-17 15:03 | NUR ---
OCCUPATIONAL THERAPY CO-SIGN I approve of the Occupational Therapy notes written above. AYANNA ALBERTS OTR/Renzo
[2018-03-17 16:00] VITALS: BP 150/75
[2018-03-17 20:00] VITALS: BP 140/66
[2018-03-18] VITALS: BP 133/88
--- NOTE | 2018-03-18 12:23 | NUR ---
Discharge instructions reviewed with patient/family. Patient receptive and verbalizes understanding. Follow-up care arranged. Written instructions given to patient/family. JAMES BONNER
--- NOTE | 2018-03-18 12:23 | NUR ---
Discharge instructions reviewed with patient/family. Patient receptive and verbalizes understanding. Follow-up care arranged. Written instructions given to patient/family. JAMES BONNER
--- NOTE | 2018-03-20 07:46 | NUR ---
PHYSICAL THERAPY CO-SIGN I approve of the Phyical Therapy notes written above. EVELYN DAVILA PT
[2018-03-22 17:15] LABS: CA OXALATE MONOHYDRATE 90 % (.); CALCIUM PHOSPHATE 10 % (.); COLOR Brown (.); SIZE 12 mm (.); WEIGHT 652.6 mg (.)
== END 2018-03-18 12:23 | disposition other institution (70) | DRG 682 ==
LOC: ED 21:24 → 5E 03-10 00:42 → EDHOLD 03-10 00:42 → 5E 03-10 00:58
PROVIDERS: Family Medicine; Internal Medicine; Internal Medicine Nephrology; Nurse Practitioner Family; Student in an Organized Health Care Education/Training Program; Surgery; ADMIT Internal Medicine
PROC: 5A09357 Assistance with Respiratory Ventilation, Less than 24 Consecutive Hours, Continuous Positive Airway Pressure (ICD-10-PCS; principal; 2018-03-15)
PROC: 5A09357 Assistance with Respiratory Ventilation, Less than 24 Consecutive Hours, Continuous Positive Airway Pressure (ICD-10-PCS; 2018-03-17)
DX: N17.0 Acute kidney failure with tubular necrosis (principal); J96.21 Acute and chronic respiratory failure with hypoxia; E44.0 Moderate protein-calorie malnutrition; E87.2 Acidosis; I50.32 Chronic diastolic (congestive) heart failure; R65.10 Systemic inflammatory response syndrome (SIRS) of non-infectious origin without acute organ dysfunction; I13.0 Hypertensive heart and chronic kidney disease with heart failure and stage 1 through stage 4 chronic kidney disease, or unspecified chronic kidney disease; Z68.41 Body mass index [BMI] 40.0-44.9, adult; E11.65 Type 2 diabetes mellitus with hyperglycemia; I87.2 Venous insufficiency (chronic) (peripheral); M88.9 Osteitis deformans of unspecified bone; N18.9 Chronic kidney disease, unspecified; M51.36 Other intervertebral disc degeneration, lumbar region; D64.9 Anemia, unspecified; J44.9 Chronic obstructive pulmonary disease, unspecified; I25.10 Atherosclerotic heart disease of native coronary artery without angina pectoris; E11.40 Type 2 diabetes mellitus with diabetic neuropathy, unspecified; E78.2 Mixed hyperlipidemia; E11.22 Type 2 diabetes mellitus with diabetic chronic kidney disease; N40.0 Benign prostatic hyperplasia without lower urinary tract symptoms; M19.90 Unspecified osteoarthritis, unspecified site; Z88.8 Allergy status to other drugs, medicaments and biological substances; Z91.030 Bee allergy status; Z91.041 Radiographic dye allergy status; Z86.73 Personal history of transient ischemic attack (TIA), and cerebral infarction without residual deficits; Z88.0 Allergy status to penicillin; Z90.49 Acquired absence of other specified parts of digestive tract; Z95.5 Presence of coronary angioplasty implant and graft; Z87.891 Personal history of nicotine dependence; Z82.49 Family history of ischemic heart disease and other diseases of the circulatory system; Z99.81 Dependence on supplemental oxygen; Z79.4 Long term (current) use of insulin; Z79.82 Long term (current) use of aspirin; Z79.899 Other long term (current) drug therapy

== ENCOUNTER 2018-04-09 15:05 | Inpatient (IN) | payer MEDICARE, OTHER ==
[2018-04-09] VITALS (12 sets, daily range): BP systolic 76–133; BP diastolic 0–89
[~2018-04-09] VITALS: Ht 177.8 cm; Wt 128.1 kg
--- NOTE | ~2018-04-09 | PR ---
[place], [place] PROGRESS NOTE NAME: ALANA RAMSAY UNIT #: [id number] ROOM: 428 DOCTOR: CAS HERRING MD BIRTHDATE: [birth year] DOS: 04/18/2018 PULMONARY PROGRESS NOTE SUBJECTIVE: The patient noted comfortable at this time, still noticing no edema of lower extremities. Denies symptoms of fever, chills. Denies symptoms of hemoptysis. He has been using the BiPAP as ordered. Continue using bronchodilators and other therapies. Diuretics has been managed and given by the Nephrology Services. Cellulitis of the lower extremities were treated with antibiotics. OBJECTIVE: VITAL SIGNS: For the patient which has been recorded showed the temperature normal, respiratory rate 18, heart rate 101, blood pressure 117/66. The pulse oxygen saturation of 66 and 95% saturation. HEENT: Chronic obesity. Neck was supple. Head was atraumatic. Eyes: No icterus. CARDIOVASCULAR: S1, S2 audible. LUNGS: The patient was noted without any wheezing or crackles. Breaths are noted [id number] diminished bilaterally. ABDOMEN: Soft, nontender. EXTREMITIES: Show previous edema. LABORATORY DATA: CBC: WBC count normal. Platelet count normal. BMP the patient this morning, BUN 8, creatinine 1.59. Potassium 3.2. IMPRESSION: 1. The patient with persistent edema in lower extremity, partial improvement, negative balance noted as 2.2 liters in the last 24 hours. 2. Resolving acute on chronic hypercapnia hypoxic respiratory failure with chronic obstructive pulmonary disease as well. 3. Obstructive sleep apnea disorder. PLAN OF MANAGEMENT: Use the BiPAP at nighttime and p.r.n. in the daytime. Continue oxygen supplementation at this time. Bronchodilators will be continued. Diuretics and other medical management by the Nephrology Services assessment. Supportive care, other therapy, plan of management, care plan of treatments. [place], [place] PROGRESS NOTE NAME: ALANA RAMSAY UNIT #: [id number] ROOM: 428 DOCTOR: CAS HERRING MD BIRTHDATE: [birth year] CAS CANSECO MD CM:PNTRANS [phone] CAS MURILLO MD 04/18/18 2305 interface
--- NOTE | ~2018-04-09 | EKG ---
[place], [place] ELECTROCARDIOGRAM REPORT NAME: ALANA RAMSAY UNIT #: [id number] ROOM: [facility] DOCTOR: ANABEL DRAFT REPORT BIRTHDATE: [birth year] [facility] Test Date: 2018-04-09 Test Time: 15:04:35 Pat Name: ALANA RAMSAY Department: Room: [facility] Gender: M Director Learning And Development: EKG.J : 1950 Requested By: WILLAM CHAN Order Number: [id number] Reading MD: Chuck Sen MD Measurements Intervals [place] Rate: 95 P: 67 SC: 178 QRS: -17 QRSD: 103 T: 50 QT: 321 QTc: 404 Interpretive Statements Sinus tachycardia Multiple ventricular premature complexes Borderline left axis deviation RSR' in V1 or V2, probably normal variant Minimal ST depression, lateral leads Compared to ECG 03/09/2018 21:47:33 Ventricular premature complex(es) now present Right ventricular hypertrophy no longer present Electronically Signed On 04-14-2018 9:27:07 PST by Chuck Sen MD CM:EKGRPT:ELECTROCARDIOGRAM REPORT [id number] WILLAM LITTLE DRAFT REPORT WILLAM CHAN MD
--- NOTE | ~2018-04-09 | PR ---
[place], [place] PROGRESS NOTE NAME: [facility]Y [facility] [id number] UNIT #: [id number] ROOM: 428 DOCTOR: AJITH MURILLO MD,CAS BIRTHDATE: [birth year] DOS: 04/11/2018 SUBJECTIVE: The patient was staying in Intensive Care Unit, sitting on the chair this morning. He was noted much more awake, alert, and oriented this morning. Using oxygen supplementation via nasal cannula BiPAP has been used intermittently during the day yesterday and continued at nighttime. This morning, was using oxygen supplementation. Denies symptoms of chest pain. There were no symptoms of fevers or chills. Cough has been noted [id number]-[id number], but small amount of sputum expectoration. Denies symptoms of fever or chills. He has not been noted further episodes of hypotension. Ultrasound of the lower extremity was completed yesterday per patient and diagnosis of acute deep venous thrombosis of the patient was excluded. He denies symptoms of headache or diplopia, nausea, vomiting, diarrhea, and abdominal pain. Remaining systems were reviewed. They were noted all negative. OBJECTIVE: VITAL SIGNS: For the patient, which has been recorded showed the temperature noted as normal, respiratory rate 14-18, heart rate of 114-108, appeared to be sinus tachycardia, blood pressure 112/54-99/51. Intake for the patient in the last 24 hours, intake 1850/3000 mL, negative fluid balance of 1.152 liters. Pulse oxygen saturation with the BiPAP 30% oxygen, 94% on 6 liters canula, at rest 97% saturation. HEENT: Chronic obesity. Head was atraumatic. Eyes nonicterus. Decreased posterior pharyngeal space, high tongue base and crowding of soft tissue structures. CARDIOVASCULAR: S1, S2 is audible. LUNGS: Moderate general reduction in the breath sounds bilaterally. ABDOMEN: Soft with chronic severe obesity. EXTREMITIES: The patient noted with persistent edema of the lower extremities with the possibility of chronic lymphedema. Evidence of cellulitis of the right lower extremity was also noted. VISIBLE SKIN: Otherwise, no lesions or rashes. MUSCULOSKELETAL: Without acute deformities. CENTRAL NERVOUS SYSTEM: Intact. LABORATORY DATA: CBC of the patient this morning, WBC of 6.5, hemoglobin 12.7, platelet count were normal. The CMP of the patient this morning, normal BUN and creatinine, glucose 211, bilirubin 1.5. The venous Doppler of both lower extremities noted negative for any deep venous thrombosis. Arterial Doppler bilateral lower extremity was also completed for this patient and reported with no significant arterial disease. The ultrasound of the abdomen was also completed yesterday shows evidence of cholelithiasis without evidence of acute cholecystitis. Diffuse hepatic steatosis, benign cyst of the left kidney. There were no obstructive lesions. Sputum for Gram stain of yesterday, few white blood cells, moderate budding yeast, many gram-positive cocci in pairs, chains and clusters, few gram-negative bacilli with normal bianca. Final culture results were pending. Blood culture was taken on admission on 04/09/2018 so far showed no bacterial growth for this patient. Final results of the blood [place], [place] PROGRESS NOTE NAME: ALANA RAMSAY UNIT #: [id number] ROOM: [facility] DOCTOR: CAS HERRING MD BIRTHDATE: [birth year] cultures were pending. Arterial blood gas this morning on 6 liters of oxygen, pH of 7.39, pCO2 of 55.5, pO2 of 65.1. IMPRESSION: 1. The patient who has been currently noted with resolution of hypotension. 2. Resolving acute kidney injury as well. 3. The patient with acute exacerbation of chronic obstructive pulmonary disease as well. 4. Peripheral edema with congestive heart failure, possibly diastolic dysfunction. 5. Chronic obesity. 6. Sleep apnea disorder PLAN OF MANAGEMENT: Continue the current use of the BiPAP. No changes need to be made. Ventilation has been corrected progressively. Continuation of the other therapy, plan and management at the present time without any changes. Bronchodilators to be continued. Diuretic therapy for the patient. Monitor kidney function and electrolytes. Antibiotics, spectrum changes based on all the available culture results. Monitor cellulitis of the lower extremities. CAS CANSECO MD CM:PNTRANS [phone] CAS MURILLO MD 05/01/18 1009 interface
--- NOTE | ~2018-04-09 | PR ---
[place], [place] PROGRESS NOTE NAME: ALANA RAMSAY UNIT #: [id number] ROOM: 428 DOCTOR: ROSSI DELGADO [facility] BIRTHDATE: [birth year] DOS: 04/18/2018 SUBJECTIVE: The patient is feeling somewhat better, but still has some tiredness and fatigue and less dyspneic. OBJECTIVE: VITAL SIGNS: Heart rate is about 90 and blood pressure is 135/88. LUNGS: Diminished breath sounds. Bilateral rhonchi and basilar rales. HEART: S1, S2. Regular. Heart sounds are soft. ABDOMEN: Obese. Soft. EXTREMITIES: Edema improved to some extent, still has. LABORATORY DATA: Hemoglobin is 11.5. Potassium is 3.2, BUN is 8, creatinine is 1.59, increased, but gotten better. GFR is diminished at 43. IMPRESSION: Cardiovascular status is fairly stable, continue to improve. PLAN: Continue current management. We will follow the patient periodically as an outpatient also. ASHA RICHEY MD CM:PNTRANS [phone] ASHA RICHEY MD [facility] 04/19/18 0322 interface
--- NOTE | ~2018-04-09 | PR ---
[place], [place] PROGRESS NOTE NAME: ALANA RAMSAY UNIT #: [id number] ROOM: 428 DOCTOR: CAS HERRING MD BIRTHDATE: [birth year] DOS: 04/19/2018 SUBJECTIVE: The patient was noted comfortable at this time stating that he has not been feeling well, but does note specific complaints this morning. Still noted edema of the lower extremity using his BiPAP. The patient as ordered at nighttime mostly. Oxygen supplementation. Continue at that time. OBJECTIVE: VITAL SIGNS: For the patient, which have been recorded shows temperature low grade fever midnight, respiratory rate 18-20, heart rate of 101-112, blood pressure 115/77. The pulse oxygen saturation recorded as 97% saturation on 6 liter nasal cannula at rest. HEENT: Examination shows head was atraumatic, chronic obesity. NECK: Supple. CARDIOVASCULAR: S1, S2 is audible. LUNGS: Noted without any wheeze or crackles. ABDOMEN: Soft and obese. EXTREMITIES: The patient was still noted edema. LABORATORY DATA: The patient's arterial blood gas pH of 7.40, pCO2 of 67, pO2 of 72. CMP of the patient this morning, BUN 11, creatinine 1.76. IMPRESSION: 1. The patient will be currently noted stable from the pulmonary standpoint with progressive resolution of [id number] hypercapnia and hypoxemic respiratory failure. 2. The patient with exacerbation of chronic obstructive pulmonary disease, which has been improving. 3. Peripheral edema remains persistent. Low-grade fever, etiology unclear. Ventilation abnormality noted for the patient as well. PLAN: The patient will be continued diuretics, BiPAP, oxygen supplementation, other treatment for COPD. Diuretic therapy and the changes in medical management for this patient to be continued by the Nephrology services. [place], [place] PROGRESS NOTE NAME: ALANA RAMSAY UNIT #: [id number] ROOM: 428 DOCTOR: CAS HERRING MD BIRTHDATE: [birth year] CAS CANSECO MD CM:PNTRANS [phone] CAS MURILLO MD 04/22/18 1032 interface
--- NOTE | ~2018-04-09 | PR ---
[place], [place] PROGRESS NOTE NAME: ALANA RAMSAY UNIT #: [id number] ROOM: [facility] DOCTOR: CAS HERRING MD BIRTHDATE: [birth year] DOS: 04/12/2018 SUBJECTIVE: The patient remains comfortable sitting on the chair. He still noted edema of the lower extremities, some of it is chronic. Denies symptoms of chest pain, fever or chills. Using the BiPAP intermittent during the day, continue at nighttime. There were no symptoms of hemoptysis. OBJECTIVE: VITAL SIGNS: For the patient which were recorded shows a normal temperature to 99.4 degree Fahrenheit, respiratory rate 18, heart rate 119, blood pressure is 130/76 to 126/70. Pulse oxygen saturation on 6 liters canula 96% saturation. Intake of 1550 mL, output 1600 mL. HEENT: Examination shows chronic obesity. NECK: Supple. Head was atraumatic. CARDIOVASCULAR: S1, S2 audible. LUNGS: Xkgu-ox-lgqvdtou decreased breath sounds in the lungs were noted bilaterally. ABDOMEN: Soft and obese. EXTREMITIES: Chronic edema with superimposed area of cellulitis and acute edema as well. LABORATORY DATA: The culture of the sputum was noted as normal bianca. BMP this morning, normal BUN and creatinine. Potassium was noted mildly decreased as 3.4 and a CO2 level noted 35. IMPRESSION: 1. The patient who has been currently noted with gradual resolution improvement in acute on chronic hypercapnic hypoxemic respiratory failure. 2. The patient with obstructive sleep apnea disorder. 3. Congestive heart failure, possibly diastolic dysfunction. 4. Cellulitis of the left lower extremity. PLAN OF THERAPY: No changes in the plan of care for the patient at this time, except the patient could be transferred to the telemetry floor. Continuation of the BiPAP, bronchodilators, and other plan of management as in progress. De-escalate the antibiotics based on the culture results. Continuation of the vancomycin for cellulitis, but discontinue the IV Zosyn. Vancomycin could be continued, but the Zosyn will be discontinued. [place], [place] PROGRESS NOTE NAME: ALANA RAMSAY UNIT #: [id number] ROOM: [facility] DOCTOR: CAS HERRING MD BIRTHDATE: [birth year] CAS CANSECO MD CM:JEANNETTE [phone] CAS MURILLO MD 04/12/18 1212 interface
--- NOTE | ~2018-04-09 | PR ---
[place], [place] PROGRESS NOTE NAME: ALANA RAMSAY UNIT #: [id number] ROOM: 428 DOCTOR: AJITH MURILLO MD,CAS BIRTHDATE: [birth year] DOS: 04/20/2018 SUBJECTIVE: The patient essentially remains the same without any acute new respiratory complaints and remains comfortable, has not been reported any symptoms of chest pain. Still noted with edema of bilateral lower extremities as well, symptoms of coughing or sputum expectoration. OBJECTIVE: VITAL SIGNS: His temperature 99.40, creatinine normal, temperature yesterday noted low grade fever at midnight of 26. The respiratory rate was 18-20, heart rate 110, blood pressure 122/61, pulse oxygen saturation as 90% saturation, 96% saturation on 6 liters nasal canula at rest. Intake 710, output was 2250, negative 1540 mL. HEENT: Chronic obesity. Head was atraumatic. Eyes nonicterus. NECK: Supple. CARDIOVASCULAR: S1, S2 is audible. LUNGS: The patient was noted without any wheezing or crackles at the present time. Breaths are noted mildly diminished bilaterally. EXTREMITIES: Shows edema. IMPRESSION: The patient with acute congestive heart failure, stable, acute on chronic hypercapnic hypoxic respiratory failure with chronic obstructive pulmonary disease. PLAN OF MANAGEMENT: No change in pulmonary standpoint. Continuation of the diuretic therapy and kidney function monitoring per Nephrology services. Continue the BiPAP and oxygen supplementation, treatment plan of management. CAS CANSECO MD CM:PNEARNEST 1308 1433 CAS MURILLO MD 04/20/18 1433 interface
--- NOTE | ~2018-04-09 | EKG ---
[place], [place] ELECTROCARDIOGRAM REPORT NAME: ALANA RAMSAY UNIT #: [id number] ROOM: [facility] DOCTOR: ANABEL DRAFT REPORT BIRTHDATE: [birth year] [facility] Test Date: 2018-04-12 Test Time: 11:35:07 Pat Name: ALANA RAMSAY Department: Room: 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: Margo Salgado : 1950 Requested By: ENE MYERS Order Number: [id number] Reading MD: Chuck Sen MD Measurements Intervals [place] Rate: 114 P: 71 ID: 180 QRS: -29 QRSD: 102 T: 59 QT: 326 QTc: 449 Interpretive Statements Sinus tachycardia Ventricular bigeminy Borderline left axis deviation RSR' in V1 or V2, probably normal variant Borderline ST depression, anterolateral leads Baseline wander in lead(s) V1,V2 Compared to ECG 03/09/2018 21:47:33 Ventricular premature complex(es) now present ST (T wave) deviation now present Atrial abnormality no longer present Right ventricular hypertrophy no longer present Electronically Signed On 04-14-2018 9:41:59 PST by Chuck Sen MD CM:EKGRPT:ELECTROCARDIOGRAM REPORT [id number] 0941 ENE LARKIN DRAFT REPORT ENE MYERS DO
--- NOTE | ~2018-04-09 | PR ---
[place], [place] PROGRESS NOTE NAME: ALANA RAMSAY UNIT #: [id number] ROOM: 428 DOCTOR: CAS HERRING MD BIRTHDATE: [birth year] DOS: 04/21/2018 PULMONARY PROGRESS NOTE SUBJECTIVE: The patient is noted comfortable at this time without any acute distress this morning. He has not been noted any ongoing acute new respiratory complaints. Shortness of breath has been gradually subsiding. There were no symptoms of fever, chills or hemoptysis reported by the patient. He was still noted with edema of the lower extremity with gradual reduction of the edema. OBJECTIVE: VITAL SIGNS: Normal temperature at 99.4 degree Fahrenheit, respiratory rate 20, heart rate of 104, blood pressure 125/87. Intake for the patient 780, output 1376, negative fluid balance of about 600 mL. Pulse oxygen saturation on 6 liters nasal cannula was 94% saturation at rest. HEENT: Shows head was atraumatic, eyes nonicterus. NECK: Supple. CARDIOVASCULAR: S1 and S2 audible. LUNGS: Moderate decreased breath sounds in the lungs bilaterally. ABDOMEN: Soft, nontender, obese. EXTREMITIES: With edema. LABORATORY DATA: BMP today: BUN 16, creatinine 1.91, potassium 3.3, CO2 of 41, chloride of 87, albumin 1.5. IMPRESSION: 1. Intravascular volume contraction, diuretic, metabolic alkalosis, combination of hypercarbia and intravascular volume depletion. 2. The patient with resolving congestive heart failure and exacerbation of chronic obstructive pulmonary disease as well as acute on chronic hypercapnic hypoxic respiratory failure. PLAN OF TREATMENT: Electrolyte imbalance and kidney problems per recommendations of the Nephrology Services. Continue BiPAP, oxygen supplementation, other therapy and plan from pulmonary standpoint. Discharge planning per primary care attending as well for long-term management of this patient for ongoing medical illnesses. [place], [place] PROGRESS NOTE NAME: ALANA RAMSAY UNIT #: [id number] ROOM: 428 DOCTOR: CAS HERRING MD BIRTHDATE: [birth year] CAS CANSECO MD CM:PNTRANS 1033 [id number] CAS MURILLO MD 04/22/18 0436 interface
--- NOTE | ~2018-04-09 | PR ---
[place], [place] PROGRESS NOTE NAME: ALANA RAMSAY UNIT #: [id number] ROOM: [facility] DOCTOR: AJITH MURILLO MD,CAS BIRTHDATE: [birth year] DOS: 04/14/2018 SUBJECTIVE: The patient was sitting on the chair this morning, using the BiPAP as ordered. Symptoms of fever or chills, shortness of breath has been improving. There were no symptoms of chest pain. Denies symptoms of hemoptysis. OBJECTIVE: VITAL SIGNS: For the patient, which have recorded shows a normal temperature, respiratory rate 22, heart rate of 109, blood pressure 128/68. Pulse oxygen saturation was recorded as a 96% saturation on a liter nasal cannula at rest. HEENT: Examination shows chronic obesity. NECK: Supple and obese. CARDIOVASCULAR: S1, S2 is audible. LUNGS: Moderate decreased breath sounds. ABDOMEN: Soft, nontender. EXTREMITIES: Shows resolving edema of the lower extremities bilaterally. LABORATORY DATA: BMP patient this morning, BUN 5, creatinine 1.33. Potassium 2.8. CO2 of 38. IMPRESSION: 1. Resolving acute on chronic hypercapnic hypoxic respiratory failure. 2. Metabolic alkalosis. 3. The patient with edema of the lower extremities as well secondary to congestive heart failure. PLAN OF MANAGEMENT: No changes in the plan of care at this time. Continue diuretic. Supplementation of electrolytes and other medical management, plan of care, and usual therapy. Supportive care. CAS CANSECO MD CM:PNTRANS 1321 2327 CAS MURILLO MD 04/14/18 5020 interface
--- NOTE | ~2018-04-09 | PR ---
[place], [place] PROGRESS NOTE NAME: ALANA RAMSAY UNIT #: [id number] ROOM: 428 DOCTOR: ROSSI DELGADO [facility] BIRTHDATE: [birth year] DOS: 04/13/2018 SUBJECTIVE: The patient is feeling somewhat better, breathing is good. Heart rate is good. Blood pressure stabilized. The patient is responding well for the albumin and Bumex drip and diuresing well, putting out greater than 2-3 liters urine for few hours. We will continue for a few days and discuss with Dr. Patrick further care along with the staff and the medical residents. OBJECTIVE: LUNGS: Diminished breath sounds with bibasilar rhonchi and rales. HEART: S1, S2 regular. ABDOMEN: Soft, obese. EXTREMITIES: Edema is also present, but improved some extent. I talked to the family also along with the patient. IMPRESSION: Improve and responding well for the diurese. We will now continue the current management. ASHA RICHEY MD CM:PNTRANS [phone] ASHA RICHEY MD [facility] 05/15/18 0841 interface
--- NOTE | ~2018-04-09 | EKG ---
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: : 1950 Requested By: KERLINE FUNEZ Order Number: [id number] Reading MD: Lucien Pabon MD Measurements Intervals [place] Rate: 106 P: 75 UT: 179 QRS: -17 QRSD: 111 T: 75 QT: 345 QTc: 459 Interpretive Statements Sinus tachycardia Probable left atrial enlargement Borderline left axis deviation RSR' in V1 or V2, right VCD or RVH Borderline ST depression, lateral leads Baseline wander in lead(s) V3 Compared to ECG 04/12/2018 11:35:07 Ventricular premature complex(es) no longer present ST (T wave) deviation still present Electronically Signed On 04-20-2018 17:53:43 PST by Lucien Pabon MD CM:EKGRPT:ELECTROCARDIOGRAM REPORT [id number] KERLINE LITTLE DRAFT REPORT KERLINE FUNEZ
--- NOTE | ~2018-04-09 | CON ---
[place], [place] REPORT OF CONSULTATION NAME: ALANA RAMSAY UNIT #: [id number] ROOM: [facility] [birth year] DOS: 04/11/2018 CARDIOLOGY CONSULTATION HISTORY OF PRESENT ILLNESS: The patient is a 68-year-old male came with significant volume overload and initially hypertensive because of the possible sepsis and then diastolic decompensation and chronic kidney disease. Case discussed with Dr. Patrick and also residency staff and underlying diastolic dysfunction of left ventricle may be considered and volume overload also a concern and also source of sepsis and also respiratory failure could have aggravated the hemodynamic status as discussed and he initially developed acute infiltrate that subsequently improved. With the proper stabilization with albumin infusion with the Bumex drip and since creatinine gotten better, the patient is responding well. PHYSICAL EXAMINATION: LUNGS: Diminished breath sounds. Severe peripheral edema. HEART: S1, S2 regular. ABDOMEN: Soft and obese. RECTAL AND GENITAL: Deferred, unrelated. IMPRESSION AND PLAN: No evidence of acute myocardial infarction noted and cardiac decompensation, diastolic is considered. We will continue the current management and prognosis guarded. Vital signs are stable at this time. Renal function also stabilized. ASHA RICHEY MD CM:CONSTR:REPORT OF CONSULTATION 1052 04/15/18 0202 interface
--- NOTE | ~2018-04-09 | PR ---
[place], [place] PROGRESS NOTE [id number] UNIT #: [id number] ROOM: 428 DOCTOR: HUBERT SIDDIQUI MD BIRTHDATE: [birth year] DOS: 04/16/2018 I am seeing this patient for Dr. Maureen Mitchell. SUBJECTIVE: The patient has been in the hospital for many days now with COPD exacerbation and chronic respiratory failure that had gotten worse. He is being treated for this. He also has had tachycardia with the ventricle ectopy. There was also "atrial fibrillation" noticed on the monitor. MEDICATIONS: He is on metoprolol. PHYSICAL EXAMINATION: GENERAL: The patient who is sitting in a chair. He is morbidly obese. He has oxygen on and is moderately tachypneic. VITAL SIGNS: Pulse is regular at 112 beats per minute. JVP is normal. Blood pressure is 141/68. NECK: JVP difficult to assess, but appears to be normal. EXTREMITIES: He has 3+ bipedal edema and 1+ pretibial edema. LUNGS: Breath sounds are severely diminished with adventitious sounds. LABORATORY DATA: Monitor shows sinus tachycardia. I reviewed all the rhythm strips that have been printed and also the nurse scanned the monitor, no atrial fibrillation was identified. IMPRESSION: 1. The patient has sinus tachycardia, which is appropriate for this patient's ailment. 2. Ventricular ectopy is noted, which is scant. In the setting of normal LV systolic function, not much credence should be given to this arrhythmia. RECOMMENDATIONS: No new recommendations. HUBERT SIDDIQUI MD CM:PNTRANS [id number] HUBERT SIDDIQUI MD 05/01/18 0909 interface
--- NOTE | ~2018-04-09 | PR ---
[place], [place] PROGRESS NOTE [id number] UNIT #: [id number] ROOM: 428 DOCTOR: AJITH MURILLO MD,CAS BIRTHDATE: [birth year] DOS: 04/17/2018 PULMONARY PROGRESS NOTE SUBJECTIVE: The patient was still noted with symptoms of shortness breath with mild exertion. The edema of the lower extremity remains unchanged. Denies symptoms of fever, chills, or hemoptysis. There were no symptoms of cough reported by the patient. OBJECTIVE: VITAL SIGNS: For the patient recorded normal temperature, respiratory rate 16, heart rate 96, blood pressure 120/78. The pulse oxygen saturation recorded as 97% saturation on 6 liters nasal canula. HEENT: Examination shows no acute change. Chronic obesity. CARDIOVASCULAR SYSTEM: S1, S2 audible. LUNGS: The patient without any wheezing or crackles at present time. Breaths are noted mildly diminished bilaterally. ABDOMEN: Soft, obese. EXTREMITIES: With edema. LABORATORY DATA: BMP today: BUN 6, creatinine 1.45. Glucose 300. CO2 of 34. IMPRESSION: The patient with acute congestive heart failure, peripheral edema with chronic obstructive pulmonary disease, acute on chronic hypercapnic hypoxic respiratory failure, and obstructive sleep apnea disorder. PLAN OF MANAGEMENT: No changes in the plan for the patient at this time. Continue current therapy and plan of care for the patient. Follow the recommendation of Nephrology service and the Cardiology for the management of the peripheral edema. Continue other therapy, plan of management, care plan and treatment and other therapies. CAS CANSECO MD CM:PNTRANS [id number] CAS MURILLO MD 04/18/18 0151 interface
--- NOTE | ~2018-04-09 | PR ---
[place], [place] PROGRESS NOTE NAME: ALANA RAMSAY UNIT #: [id number] ROOM: [facility] DOCTOR: AJITH MURILLO MD,CAS BIRTHDATE: [birth year] DOS: 04/15/2018 PULMONARY PROGRESS NOTE SUBJECTIVE: The patient continued doing well with reduction of respiratory symptoms, edema of the lower extremity was noted. Denies symptoms of chest pain. He was on BiPAP as ordered intermittently during the day, continue at nighttime. OBJECTIVE: VITAL SIGNS: Normal temperature, respiratory rate of 22, heart rate of 104, blood pressure 120/74. The pulse oxygen saturation recorded on 6L nasal cannula 94% saturation. BiPAP as 98% saturation with 35% oxygen use. HEENT: Examination shows head was atraumatic. Eyes nonicterus. NECK: Supple. CARDIOVASCULAR: S1, S2 audible. LUNGS: Without wheeze or crackles. ABDOMEN: Soft, nontender. EXTREMITIES: Resolving edema of the lower extremities. IMPRESSION: 1. Progressive, but gradual resolution was noted for the acute congestive heart failure, acute on chronic hypercapnic and hypoxic respiratory failure. 2. Hyperkalemia related to diuretics use and metabolic alkalosis, multifactorial secondary to hypercarbia use of diuretics. 3. Chronic obesity with obstructive sleep apnea disorder. PLAN OF TREATMENT: The patient continues to respond to treatment, would be continued current therapy, plan of management at this time. Discharge planning per assessment of the primary care attending. Supplementation of electrolytes will be continued. CAS CANSECO MD CM:PNTRANS [id number] CAS MURILLO MD 04/16/18 0547 interface
--- NOTE | ~2018-04-09 | CON ---
[place], [place] REPORT OF CONSULTATION NAME: ALANA RAMSAY UNIT #: [id number] ROOM: 428 DOCTOR: AJITH MURILLO MDCAS BIRTHDATE: [birth year] DOS: 04/10/2018 PULMONARY CONSULTATION, EVALUATION, AND MANAGEMENT REASON FOR CONSULTATION: For the assessment of current mental status changes and respiratory failure. HISTORY OF PRESENT ILLNESS: This is a 67-year-old white male known to me from the past as the patient was assessed in 12/2017, was treated for severe acute exacerbation of chronic obstructive pulmonary disease, rypbo-rd-[id number] hypercapnic and hypoxemic respiratory failure. The patient improved after that. He has not been seen in the office on a regular basis. The patient is currently staying in the [facility]. He has been treated in the hospital in 03/2018. At that time, the patient has been noted with spontaneous discharge and managed for other pulmonary problems and then discharged to the nursing facility. He is staying in the nursing facility. Upon questioning, the patient stated that he does not know why he was in the hospital. He is noted a poor historian and the history of the patient would be limited. History, which we have, is reviewed and history taken by the other physician was reviewed as well as the nursing staff notes. The patient was noted with systolic hypertension, blood pressure is 88 at that time and also noted with confusional status and other issues. He has been brought to the Emergency Room, where he had been assessed, given intravenous fluid supplementation with improvement in the hypotension recorded. The patient was admitted to the Intensive Care Unit for further treatment. He has been started on the BiPAP as well for the medical management of respiratory failure and for the medical management of hypercapnia as well. PAST MEDICAL HISTORY: The patient was noted with: 1. Advanced end-stage COPD. 2. Use of oxygen supplementation 6 liters by nasal cannula for severe chronic hypoxia. 3. Chronic hypercapnic respiratory failure. 4. Congestive heart failure, diastolic dysfunction. 5. Morbid obesity. 6. Essential hypertension. 7. Obstructive sleep apnea disorder treated with the CPAP at the nursing facility per nurse's notes. 8. Nephrolithiasis. 9. Transient ischemic attack. 10. Peripheral neuropathy. 11. Paget's disease. 12. Type 2 diabetes mellitus, insulin requiring. 13. Vitamin D deficiency. 14. Benign prostatic hypertrophy. 15. Coronary artery disease. PAST SURGICAL HISTORY: 1. Cardiac catheterization, coronary artery stent insertion. 2. Appendectomy. [place], [place] REPORT OF CONSULTATION NAME: ALANA RAMSAY UNIT #: [id number] ROOM: [facility] DOCTOR: AJITH MURILLO MD,CAS BIRTHDATE: [birth year] 3. Hemorrhoidectomy. 4. Tonsillectomy. CURRENT MEDICATIONS: Administered noted use of digoxin, Flomax, Imdur, finasteride, Plavix, vitamin B12, vitamin D, aspirin, sliding insulin coverage, Lantus insulin, simvastatin, gabapentin, Flexeril, vancomycin, IV Zosyn, and other p.r.n. medications. DRUG ALLERGIES: REPORTED ALLERGIES TO: 1. PENICILLIN. 2. IODINE. 3. ACTONEL. SOCIAL HISTORY: The patient is , currently a resident of [facility], has 2 children. He denies any alcohol or illicit drug use. Tobacco use noted since early teens, 2 packs of cigarettes per day until 2016. FAMILY HISTORY: The patient's father passed at the age of [id number] from acute myocardial infarction. Mother is living, [id number] without any known medical illnesses. PHYSICAL EXAMINATION: GENERAL: The patient is a 67-year-old male, who has been currently noted awake and alert without any acute distress. Height of 5 feet 10 inches, weight of 308 pounds, and BMI of 44.1. VITAL SIGNS: The vital signs of the patient, which were recorded showed the temperature was recorded as normal since admission, respiratory rate of 14-18, heart rate of 90-100. The blood pressure of 88/49-118/58 at 8 o'clock. The intake is recorded as intake of 1500 mL, output of 2000 mL, negative fluid balance of 500 mL in the last 24 hours. HEENT: On examination, head was atraumatic. Eyes nonicterus. NECK: Supple. Severe obesity. Edentulous status. Decreased posterior pharyngeal space, high tongue base crowding soft tissue structures. CARDIOVASCULAR SYSTEM: S1, S2 is audible. There were no added sounds. LUNGS: General reduction of the breath sounds bilaterally. There were no wheezes or crackles noted. ABDOMEN: Noted severe obesity. Bowel sounds present without any tenderness. EXTREMITIES: Noted 2-3+ pitting edema. Some of the edema could be chronic as well with dusky skin. VISIBLE SKIN: No abnormal lesions, rashes, or open areas. CENTRAL NERVOUS SYSTEM: Cranial nerves 2-12 intact. No focal deficit. MUSCULOSKELETAL: Without any acute deformities. LABORATORY DATA: BMP as an outpatient was noted with CO2 of 40 on 04/03/2018. CBC that was done yesterday, WBC count is normal, hemoglobin is 12.2, and normal platelet count. Lactic acid is 2.0 yesterday follow 1.7. Arterial blood gas, pH of 7.27, pCO2 of 70, and pO2 of 99 on 40% oxygen. PT and PTT were noted as normal. CMP of the patient on 04/09/2018, BUN is 41, creatinine is 3.0, glucose is 253, and potassium is 5.2. Digoxin level is 1.17, which is therapeutic. Troponin which was done yesterday and this morning all sets were noted as [place], [place] REPORT OF CONSULTATION NAME: ALANA RAMSAY UNIT #: [id number] ROOM: [facility] DOCTOR: AJITH MURILLO MD,[facility] BIRTHDATE: [birth year] normal. The arterial blood gas repeated later, pH of 7.25, pCO2 of 71.9, pO2 of 84 on the BiPAP with 40% oxygen. Arterial blood gas of the patient repeated this morning, pH of 7.35, pCO2 of 58, pO2 of 60 as a setting on the BiPAP to 20/10. CBC this morning essentially remains the identical as of yesterday. CMP of the patient this morning, BUN is 34, creatinine is 1.86, glucose is 164, and CO2 is 34. IMAGING DATA: The chest x-ray, one-view, was noted mild cardiomegaly, mild pulmonary venous congestion markings, increased interstitial markings, noted without any gross area of pulmonary infiltration or pleural fluids. IMPRESSION: 1. The patient has been currently admitted to the hospital with history of change in mental status, multifactorial secondary to acute on chronic hypercapnic respiratory failure and a result of mild hypotension. 2. Intravascular volume depletion with acute tubular necrosis with prerenal azotemia with current use of diuretic. The patient was recently started on the Xarelto, would be considered. There were no signs of active pulmonary infection at this time known so far. The blood cultures had been taken, which were pending. 3. History of congestive heart failure, diastolic dysfunction. 4. The patient with chronic obstructive pulmonary disease history, which appeared to be advanced in stage at this time with early exacerbation would be considered. 5. The patient with chronic lymphedema. 6. Diabetes mellitus. 7. Metabolic alkalosis secondary to chronic hypercarbia and intravascular volume depletion. PLAN OF THERAPY: BiPAP noted effective to improve the ventilatory status and hypoxia. The BiPAP will be continued most of the time today and continuous at nighttime. The weaning from the BiPAP will be started tomorrow. Avoid excessive fluid administration to prevent further fluid load or peripheral edema. Mild pulmonary venous congestion marking noted. Acute kidney injury seemed to be resolving on current treatment. Continue Cardiology services and followup. Echocardiogram has been repeated this morning with pending results. DVT prophylaxis. Bronchodilators administration. Other therapy, plan of management, and care plan. Additional treatment changes will be ordered based on the progression of his illness. At this time, the patient is getting broad-spectrum intravenous antibiotics, vancomycin and Zosyn, need to be deescalated based on the assessment for any infection once this is appropriately excluded. Thanks for allowing me to participate in the care of this patient. [place], [place] REPORT OF CONSULTATION NAME: ALANA RAMSAY UNIT #: [id number] ROOM: [facility] DOCTOR: CAS HERRING MD BIRTHDATE: [birth year] CAS CANSECO MD CM:CONSTR:REPORT OF CONSULTATION 1045 05/01/18 1007 interface
--- NOTE | ~2018-04-09 | PR ---
[place], [place] PROGRESS NOTE NAME: ALANA RAMSAY UNIT #: [id number] ROOM: [facility] DOCTOR: AJITH MURILLO MD,CAS BIRTHDATE: [birth year] DOS: 04/16/2018 SUBJECTIVE: The patient was noted comfortable at this time, sitting on the chair. Shortness of breath has been gradually subsiding. He still noted with moderate edema of the lower extremity. Denies symptoms of fever or chills. Denies symptoms of hemoptysis. He was noted with intermittent tachycardia. OBJECTIVE: VITAL SIGNS: For the patient, normal temperature, respiratory rate 16-22, heart rate of 118-96, blood pressure 120/75-141/68. Intake of 1940 mL and output 1850 mL. Pulse oxygen saturation was noted on the nasal cannula 5 liters at rest is 92% saturation with the BiPAP at 95%. HEENT: Examination shows head was atraumatic. Eyes nonicterus. NECK: Supple. CARDIOVASCULAR: S1 and S2 audible. LUNGS: Moderate general reduction in breath sounds. There were no crackles. No wheezing present. ABDOMEN: Soft and obese. EXTREMITIES: 2+ pitting edema. IMPRESSION: 1. The patient with resolving acute on chronic hypercapnic hypoxic respiratory failure. 2. Acute congestive heart failure. 3. Chronic obstructive pulmonary disease. 4. Obstructive sleep apnea disorder. PLAN OF THERAPY: No change in pulmonary standpoint. Discharge planning for alf facility per primary care attending. Continue in the meantime other therapy as in progress. Usual care. Other supportive plan of treatment as well. Additional treatment changes recommended based on progression of illness. CAS CANSECO MD CM:PNTRANS [id number] CAS MURILLO MD 04/16/18 1654 interface
--- NOTE | ~2018-04-09 | PR ---
[place], [place] PROGRESS NOTE NAME: [id number] UNIT #: [id number] ROOM: [facility] DOCTOR: AJITH MURILLO MD,CAS BIRTHDATE: [birth year] DOS: 04/13/2018 PULMONARY PROGRESS NOTE SUBJECTIVE: The patient noted comfortable at this time, sitting on the chair. Using the BiPAP. Denies symptoms of fever or chills. She denies symptoms of hemoptysis. Still noted edema of the lower extremities. Denies symptoms of nausea, vomiting, diarrhea, abdominal pain, hematemesis, or melena. Denies symptoms of hematochezia. He has been noted with significant negative fluid balance in the last 24 hours. The patient is using oxygen supplementation, intermittent with the BiPAP use. Has not been noted any acute hemodynamic instability, except tachycardia, still remains persistent. Denies symptoms of hemoptysis. Denies symptoms of dysuria or suprapubic pain. Remaining systems were reviewed with noted all negative. PHYSICAL EXAMINATION: VITAL SIGNS: Normal temperature to 100 degrees Fahrenheit, respiratory rate of 12-18, heart rate of 114-113. Blood pressure 135/79-130/60. Intake was 1455 and output was 3.7 liters, negative fluid balance of 2.3 liters. Pulse oxygen saturation with a 35% oxygen 96% on 6 liter nasal cannula other time is 96% saturation. HEENT: Chronic obesity. Head was atraumatic. Eyes nonicterus. Decreased posterior pharyngeal space, as previously noted. CARDIOVASCULAR: S1, S2 is audible. LUNGS: The patient was noted with generally diminished breath sounds bilaterally. There were no wheeze or crackles. ABDOMEN: Soft, obese, and nontender. EXTREMITIES: The patient was still noted significant edema, but partial improvement and reduction from previous examination. Cellulitis are also noted decreased in the right lower extremity. CENTRAL NERVOUS SYSTEM: Intact. MUSCULOSKELETAL: Without any acute deformities. LABORATORY DATA: CBC that was done this morning, WBC count normal, hemoglobin 12, platelet count were normal. The CMP this morning, glucose 230, BUN 6, creatinine was normal. Potassium 2.9, CO2 of 37. Total bilirubin 1.2. IMPRESSION: 1. The patient with acute congestive heart failure. 2. Resolving taiax-on-vrfgqjj hypercapnic and hypoxemic respiratory failure. 3. Sinus tachycardia as well. 4. Cellulitis of the left lower extremity. 5. Chronic obesity with obstructive sleep apnea disorder. 6. Hypokalemia. 7. Metabolic alkalosis. PLAN OF MANAGEMENT: Supplementation of potassium. Keep the patient negative fluid balance. Continue vancomycin, trough level noted low 5.9 and needs to be adjusted by the pharmacy to maintain a therapeutic level between 15-20. [place], [place] PROGRESS NOTE NAME: ALANA RAMSAY UNIT #: [id number] ROOM: [facility] DOCTOR: AJITH MURILLO MD,CAS BIRTHDATE: [birth year] Continue the BiPAP with the oxygen supplementation with use, bronchodilator, and use of the BiPAP as previously. Other additional treatment changes will be made based on progression of the illness. Physical therapy, occupation therapy will be beneficial. The Xarelto has already used for chronic anticoagulation, would continue to serve as a DVT prophylaxis as well. CAS CANSECO MD CM:PNTRANS [id number] CAS MURILLO MD 04/13/18 1232 interface
[~2018-04-09 15:05] MED LIST changes: +NOVOLOG FL100 UNIT/1 SQ
[2018-04-09 15:40] LABS: BASO # 0.1 10*3/uL (0.0-0.1); BASO % 0.8 % (0.0-1.0); EOS # 0.2 10*3/uL (0.0-0.4); EOS % 3.2 % (1.0-4.0); HEMOGLOBIN 12.2 g/dl (14.0-18.0); LYMPH # 1.9 10*3/uL (1.3-4.4); MEAN CELL VOLUME 96.9 fl (80.0-94.0); MEAN CORPUSCULAR HGB 29.5 pg (27.0-31.0); MEAN CORPUSCULAR HGB CONC 30.5 g/dl (33.0-37.0); MEAN PLATELET VOLUME 10.7 fl (9.6-12.3); MONO # 0.9 10*3/uL (0.1-1.0); MONO % 11.9 % (3.0-9.0); NEUT # 4.1 10*3/uL (2.3-7.9); NEUT % 56.1 % (47.0-73.0); PLATELET COUNT AUTOMATED 202 10*3/uL (130-400); RED BLOOD COUNT 4.13 10*6/uL (4.50-5.90); RED CELL DISTRI WIDTH 14.3 % (0-14.5); WHITE BLOOD COUNT 7.4 10*3/uL (4.8-10.8)
[2018-04-09 15:42] LABS: ABG BASE EXCESS 3.1 mmol/L (-2.0-2.0); ABG HCO3 31.3 mmol/l (22-26); ABG O2 SATURATION 97.2 % (95-97); ARTERIAL BLOOD GAS PH 7.274 (7.35-7.45); ARTERIAL BLOOD GAS PO2 99.8 mmHg (80-90)
[2018-04-09 15:48] LABS: ACT PARTIAL THROMBO TIME 22.2 SECONDS (20.8-31.5); INTERNATIONAL NORM RATIO 0.9 (2.0-3.5)
[2018-04-09 16:00] LABS: ALKALINE PHOSPHATASE 125 U/L (45-117); BUN 41 mg/dl (7-24); CHLORIDE 99 mmol/L (98-107); POTASSIUM 5.2 mmol/L (3.5-5.1); SGOT/AST 21 IU/L (3-35); SGPT/ALT 43 U/L (12-78); SODIUM 138 mmol/L (136-145); TOTAL PROTEIN 6.6 gm/dL (6.4-8.2)
[2018-04-09 16:05] LABS: TROPONIN I < 0.015 ng/ml (<0.045)
[2018-04-09] MEDS ORDERED: DIGITEK250 MCG PO (17:38)
[2018-04-09] MEDS ORDERED: DULCOLAX10 M1 R (17:40)
[2018-04-09] MEDS ORDERED: FLEET ENEMA 13133 ML R (17:42)
[2018-04-09] MEDS ORDERED: KLOR-CON 1010 ME1 PO ×2 (17:52→17:53)
[2018-04-09] MEDS ORDERED: Zaroxolyn,Diul2.5 MG PO (18:03)
[2018-04-09] MEDS ORDERED: MILK OF MA400 MG/5 M PO (18:05)
[2018-04-09] MEDS ORDERED: GLUCAGON EMERGEN1 M1 IM (18:18)
[2018-04-09] MEDS ORDERED: GLUTOSE 1537.5 GM PO (18:23)
[2018-04-09 19:06] LABS: BILIRUBIN NEGATIVE (NEGATIVE); BLOOD NEGATIVE (NEGATIVE); CLARITY CLEAR (CLEAR); COLOR YELLOW (YELLOW); GLUCOSE NEGATIVE (NEGATIVE); KETONE NEGATIVE (NEGATIVE); LEUKO ESTERASE NEGATIVE (NEGATIVE); NITRITE NEGATIVE (NEGATIVE); PH 5.5 (5.0-9.0); UROBILINOGEN 0.2 E.U./dl (0.2-1.0)
[2018-04-09 19:19] LABS: ABG BASE EXCESS 2.6 mmol/L (-2.0-2.0); ABG HCO3 31.4 mmol/l (22-26); ARTERIAL BLOOD GAS PH 7.241 (7.35-7.45)
[2018-04-09 19:27] LABS: ARTERIAL BLOOD GAS PCO2 75.7 mmHg (35-45)
[2018-04-09 19:33] LABS: HYALINE CAST 15-20
[2018-04-09 19:34] LABS: RBC 0-2 rbc/hpf (0-2)
[2018-04-09 19:46] LABS: ABG BASE EXCESS 2.6 mmol/L (-2.0-2.0); ABG HCO3 31.2 mmol/l (22-26); ABG O2 SATURATION 97.7 % (95-97); ARTERIAL BLOOD GAS PH 7.256 (7.35-7.45); ARTERIAL BLOOD GAS PO2 84.4 mmHg (80-90)
[2018-04-09 19:48] LABS: ARTERIAL BLOOD GAS PCO2 71.9 mmHg (35-45)
[2018-04-10] VITALS (52 sets, daily range): BP systolic 88–151; BP diastolic 31–131
[2018-04-10 00:13] LABS: CPK 61 U/L (39-308)
[2018-04-10 00:14] LABS: TROPONIN I < 0.015 ng/ml (<0.045)
[2018-04-10 05:10] LABS: BASO # 0.1 10*3/uL (0.0-0.1); EOS # 0.2 10*3/uL (0.0-0.4); HEMATOCRIT 38.8 % (42.0-52.0); HEMOGLOBIN 12.2 g/dl (14.0-18.0); LYMPH # 1.5 10*3/uL (1.3-4.4); LYMPH % 24.1 % (27.0-41.0); MEAN CORPUSCULAR HGB 30.2 pg (27.0-31.0); MEAN CORPUSCULAR HGB CONC 31.4 g/dl (33.0-37.0); MEAN PLATELET VOLUME 10.4 fl (9.6-12.3); MONO # 0.7 10*3/uL (0.1-1.0); MONO % 11.3 % (3.0-9.0); NEUT # 3.5 10*3/uL (2.3-7.9); NEUT % 57.4 % (47.0-73.0); PLATELET COUNT AUTOMATED 189 10*3/uL (130-400); RED BLOOD COUNT 4.04 10*6/uL (4.50-5.90); RED CELL DISTRI WIDTH 14.5 % (0-14.5)
[2018-04-10 05:31] LABS: ALBUMIN 2.9 gm/dl (3.1-4.5); CREATININE 1.86 mg/dL (0.70-1.30); POTASSIUM 4.5 mmol/L (3.5-5.1); TOTAL PROTEIN 6.2 gm/dL (6.4-8.2)
[2018-04-10 07:33] LABS: ABG HCO3 31.7 mmol/l (22-26); ABG O2 SATURATION 91.6 % (95-97); ARTERIAL BLOOD GAS PCO2 58.4 mmHg (35-45); ARTERIAL BLOOD GAS PH 7.352 (7.35-7.45); ARTERIAL BLOOD GAS PO2 60.4 mmHg (80-90)
[2018-04-11] VITALS: BP 99/51
[2018-04-11 04:00] VITALS: BP 147/67
[2018-04-11 04:43] LABS: HEMATOCRIT 40.1 % (42.0-52.0); HEMOGLOBIN 12.7 g/dl (14.0-18.0); MEAN CELL VOLUME 94.4 fl (80.0-94.0); MEAN CORPUSCULAR HGB 29.9 pg (27.0-31.0); MEAN CORPUSCULAR HGB CONC 31.7 g/dl (33.0-37.0); MEAN PLATELET VOLUME 10.3 fl (9.6-12.3); NUCLEATED RED BLOOD CELL 0.3 % (0.0-0.0); PLATELET COUNT AUTOMATED 201 10*3/uL (130-400); RED BLOOD COUNT 4.25 10*6/uL (4.50-5.90); RED CELL DISTRI WIDTH 14.3 % (0-14.5); WHITE BLOOD COUNT 6.5 10*3/uL (4.8-10.8)
[2018-04-11 05:03] LABS: ALBUMIN 3.1 gm/dl (3.1-4.5); ALKALINE PHOSPHATASE 129 U/L (45-117); CHLORIDE 104 mmol/L (98-107); CREATININE 1.22 mg/dL (0.70-1.30); POTASSIUM 3.7 mmol/L (3.5-5.1); SGOT/AST 29 IU/L (3-35); SGPT/ALT 39 U/L (12-78); SODIUM 140 mmol/L (136-145); TOTAL PROTEIN 6.7 gm/dL (6.4-8.2)
[2018-04-11 05:09] LABS: BUN 19 mg/dl (7-24)
[2018-04-11 05:51] LABS: BASOPHILS 1 % (0-1); PLATELET SUFFICIENCY NORMAL (NORMAL); POLYCHROMASIA SLIGHT; TOTAL CELLS COUNTED 100 #CELLS
[2018-04-11 08:00] VITALS: BP 132/80
[2018-04-11 08:49] LABS: ABG BASE EXCESS 7.1 mmol/L (-2.0-2.0); ABG HCO3 32.9 mmol/l (22-26); ABG O2 SATURATION 93.4 % (95-97); ARTERIAL BLOOD GAS PCO2 55.5 mmHg (35-45); ARTERIAL BLOOD GAS PH 7.393 (7.35-7.45); ARTERIAL BLOOD GAS PO2 65.1 mmHg (80-90)
[2018-04-11 12:00] VITALS: BP 114/56
[2018-04-11 17:08] VITALS: BP 135/57
[2018-04-11 20:01] VITALS: BP 131/62
[2018-04-12] VITALS: BP 126/70
[2018-04-12 04:00] VITALS: BP 130/76
[2018-04-12 07:48] LABS: HEMATOCRIT 37.7 % (42.0-52.0); HEMOGLOBIN 11.9 g/dl (14.0-18.0); MEAN CELL VOLUME 92.9 fl (80.0-94.0); MEAN CORPUSCULAR HGB 29.3 pg (27.0-31.0); MEAN CORPUSCULAR HGB CONC 31.6 g/dl (33.0-37.0); MEAN PLATELET VOLUME 10.3 fl (9.6-12.3); NUCLEATED RED BLOOD CELL 0.1 10*3/uL (0.0-0.0); NUCLEATED RED BLOOD CELL 1.3 % (0.0-0.0); PLATELET COUNT AUTOMATED 187 10*3/uL (130-400); RED BLOOD COUNT 4.06 10*6/uL (4.50-5.90); RED CELL DISTRI WIDTH 14.1 % (0-14.5); WHITE BLOOD COUNT 8.3 10*3/uL (4.8-10.8)
[2018-04-12 07:57] LABS: BUN 10 mg/dl (7-24); CHLORIDE 100 mmol/L (98-107); CREATININE 0.91 mg/dL (0.70-1.30); SODIUM 140 mmol/L (136-145)
[2018-04-12 07:59] LABS: POTASSIUM 3.4 mmol/L (3.5-5.1)
[2018-04-12 08:00] VITALS: BP 126/88
[2018-04-12 08:13] LABS: ATYPICAL LYMPHS 4 % (0-0); BASOPHILS 1 % (0-1); PLATELET SUFFICIENCY NORMAL (NORMAL); TOTAL CELLS COUNTED 100 #CELLS
[2018-04-12 12:00] VITALS: BP 103/46
[2018-04-12 16:00] VITALS: BP 135/79
[2018-04-12 17:59] LABS: BUN 7 mg/dl (7-24); CHLORIDE 98 mmol/L (98-107); CREATININE 1.04 mg/dL (0.70-1.30); POTASSIUM 3.3 mmol/L (3.5-5.1); SODIUM 142 mmol/L (136-145)
[2018-04-12 20:00] VITALS: BP 128/64
[2018-04-13] VITALS: BP 138/62
[2018-04-13 04:00] VITALS: BP 130/60
[2018-04-13 04:52] LABS: BASO # 0.1 10*3/uL (0.0-0.1); BASO % 0.9 % (0.0-1.0); EOS # 0.3 10*3/uL (0.0-0.4); EOS % 5.6 % (1.0-4.0); HEMATOCRIT 37.9 % (42.0-52.0); LYMPH # 1.4 10*3/uL (1.3-4.4); LYMPH % 23.4 % (27.0-41.0); MEAN CELL VOLUME 93.6 fl (80.0-94.0); MEAN CORPUSCULAR HGB 29.6 pg (27.0-31.0); MEAN CORPUSCULAR HGB CONC 31.7 g/dl (33.0-37.0); MONO # 0.7 10*3/uL (0.1-1.0); MONO % 11.5 % (3.0-9.0); NEUT # 3.3 10*3/uL (2.3-7.9); NEUT % 56.4 % (47.0-73.0); NUCLEATED RED BLOOD CELL 0.3 % (0.0-0.0); PLATELET COUNT AUTOMATED 223 10*3/uL (130-400); RED BLOOD COUNT 4.05 10*6/uL (4.50-5.90); RED CELL DISTRI WIDTH 14.2 % (0-14.5); WHITE BLOOD COUNT 5.9 10*3/uL (4.8-10.8)
[2018-04-13 05:09] LABS: ALBUMIN 3.3 gm/dl (3.1-4.5); ALKALINE PHOSPHATASE 113 U/L (45-117); BUN 6 mg/dl (7-24); CHLORIDE 95 mmol/L (98-107); CREATININE 1.18 mg/dL (0.70-1.30); POTASSIUM 2.9 mmol/L (3.5-5.1); SGOT/AST 28 IU/L (3-35); SGPT/ALT 40 U/L (12-78); SODIUM 139 mmol/L (136-145); TOTAL PROTEIN 7.2 gm/dL (6.4-8.2)
[2018-04-13 05:20] LABS: DIGOXIN 0.57 ng/ml (0.8-2.0)
[2018-04-13 08:00] VITALS: BP 118/64
[2018-04-13 12:00] VITALS: BP 130/91
[2018-04-13 16:00] VITALS: BP 135/70
[2018-04-13 16:57] LABS: BUN 5 mg/dl (7-24); CHLORIDE 90 mmol/L (98-107); CREATININE 1.23 mg/dL (0.70-1.30); SODIUM 138 mmol/L (136-145)
[2018-04-13 20:00] VITALS: BP 125/69
[2018-04-14] VITALS: BP 108/61
[2018-04-14 04:00] VITALS: BP 128/80
[2018-04-14 05:14] LABS: BASO # 0.1 10*3/uL (0.0-0.1); BASO % 0.9 % (0.0-1.0); EOS # 0.4 10*3/uL (0.0-0.4); EOS % 5.5 % (1.0-4.0); HEMOGLOBIN 11.9 g/dl (14.0-18.0); LYMPH # 1.6 10*3/uL (1.3-4.4); LYMPH % 23.5 % (27.0-41.0); MEAN CELL VOLUME 95.2 fl (80.0-94.0); MEAN CORPUSCULAR HGB 29.8 pg (27.0-31.0); MEAN CORPUSCULAR HGB CONC 31.3 g/dl (33.0-37.0); MEAN PLATELET VOLUME 9.9 fl (9.6-12.3); MONO # 0.7 10*3/uL (0.1-1.0); MONO % 10.8 % (3.0-9.0); NEUT # 3.9 10*3/uL (2.3-7.9); NEUT % 57.8 % (47.0-73.0); PLATELET COUNT AUTOMATED 229 10*3/uL (130-400); RED BLOOD COUNT 3.99 10*6/uL (4.50-5.90); RED CELL DISTRI WIDTH 14.4 % (0-14.5); WHITE BLOOD COUNT 6.7 10*3/uL (4.8-10.8)
[2018-04-14 05:37] LABS: BUN 5 mg/dl (7-24); CHLORIDE 92 mmol/L (98-107); CREATININE 1.33 mg/dL (0.70-1.30); PHOSPHOROUS 3.3 mg/dL (2.5-4.9); POTASSIUM 2.8 mmol/L (3.5-5.1); SODIUM 140 mmol/L (136-145)
[2018-04-14 08:00] VITALS: BP 146/83
[2018-04-14 12:00] VITALS: BP 128/68
[2018-04-14 14:59] LABS: BUN 4 mg/dl (7-24); CHLORIDE 91 mmol/L (98-107); CREATININE 1.35 mg/dL (0.70-1.30); POTASSIUM 3.2 mmol/L (3.5-5.1); SODIUM 138 mmol/L (136-145)
[2018-04-14 16:00] VITALS: BP 137/65
[2018-04-14 20:00] VITALS: BP 141/72
[2018-04-15] VITALS: BP 116/57
[2018-04-15 04:00] VITALS: BP 119/70
[2018-04-15 06:21] LABS: BASO # 0.1 10*3/uL (0.0-0.1); EOS # 0.3 10*3/uL (0.0-0.4); EOS % 5.5 % (1.0-4.0); HEMATOCRIT 37.4 % (42.0-52.0); HEMOGLOBIN 11.4 g/dl (14.0-18.0); LYMPH # 1.4 10*3/uL (1.3-4.4); LYMPH % 23.3 % (27.0-41.0); MEAN CELL VOLUME 97.4 fl (80.0-94.0); MEAN CORPUSCULAR HGB 29.7 pg (27.0-31.0); MEAN CORPUSCULAR HGB CONC 30.5 g/dl (33.0-37.0); MEAN PLATELET VOLUME 9.5 fl (9.6-12.3); MONO # 0.6 10*3/uL (0.1-1.0); MONO % 9.5 % (3.0-9.0); NEUT # 3.5 10*3/uL (2.3-7.9); NEUT % 58.4 % (47.0-73.0); PLATELET COUNT AUTOMATED 231 10*3/uL (130-400); RED BLOOD COUNT 3.84 10*6/uL (4.50-5.90); RED CELL DISTRI WIDTH 14.8 % (0-14.5)
[2018-04-15 06:47] LABS: BUN 4 mg/dl (7-24); CHLORIDE 92 mmol/L (98-107); CREATININE 1.39 mg/dL (0.70-1.30); POTASSIUM 3.1 mmol/L (3.5-5.1); SODIUM 138 mmol/L (136-145)
[2018-04-15 08:00] VITALS: BP 120/74
[2018-04-15 10:44] VITALS: BP 117/71
[2018-04-15 16:00] VITALS: BP 119/81
[2018-04-15 20:00] VITALS: BP 133/61
[2018-04-16] VITALS: BP 116/68
[2018-04-16 04:00] VITALS: BP 141/68
[2018-04-16 06:05] LABS: BASO # 0.1 10*3/uL (0.0-0.1); BASO % 0.7 % (0.0-1.0); EOS # 0.3 10*3/uL (0.0-0.4); EOS % 4.9 % (1.0-4.0); HEMATOCRIT 35.2 % (42.0-52.0); HEMOGLOBIN 11.1 g/dl (14.0-18.0); LYMPH # 1.6 10*3/uL (1.3-4.4); LYMPH % 24.1 % (27.0-41.0); MEAN CELL VOLUME 95.7 fl (80.0-94.0); MEAN CORPUSCULAR HGB 30.2 pg (27.0-31.0); MEAN CORPUSCULAR HGB CONC 31.5 g/dl (33.0-37.0); MEAN PLATELET VOLUME 9.9 fl (9.6-12.3); MONO # 0.8 10*3/uL (0.1-1.0); MONO % 11.3 % (3.0-9.0); NEUT # 3.8 10*3/uL (2.3-7.9); NEUT % 56.6 % (47.0-73.0); PLATELET COUNT AUTOMATED 229 10*3/uL (130-400); RED BLOOD COUNT 3.68 10*6/uL (4.50-5.90); RED CELL DISTRI WIDTH 14.5 % (0-14.5); WHITE BLOOD COUNT 6.7 10*3/uL (4.8-10.8)
[2018-04-16 06:06] LABS: ALBUMIN 3.3 gm/dl (3.1-4.5); ALKALINE PHOSPHATASE 97 U/L (45-117); BUN 5 mg/dl (7-24); CHLORIDE 96 mmol/L (98-107); CREATININE 1.34 mg/dL (0.70-1.30); POTASSIUM 3.2 mmol/L (3.5-5.1); SGOT/AST 53 IU/L (3-35); SGPT/ALT 66 U/L (12-78); SODIUM 140 mmol/L (136-145); TOTAL PROTEIN 6.6 gm/dL (6.4-8.2)
[2018-04-16 08:00] VITALS: BP 142/64
[2018-04-16 12:00] VITALS: BP 128/75
[2018-04-16 16:00] VITALS: BP 108/50
[2018-04-16 20:00] VITALS: BP 132/76
[2018-04-17] VITALS: BP 146/83
[2018-04-17 04:00] VITALS: BP 133/71
[2018-04-17 05:14] LABS: CREATININE 1.45 mg/dL (0.70-1.30); POTASSIUM 3.6 mmol/L (3.5-5.1)
[2018-04-17 08:00] VITALS: BP 120/78
[2018-04-17 12:00] VITALS: BP 132/72
[2018-04-17 16:00] VITALS: BP 137/70
[2018-04-17 20:00] VITALS: BP 106/73
[2018-04-18] VITALS: BP 117/66
[2018-04-18 06:40] LABS: POTASSIUM 3.2 mmol/L (3.5-5.1)
[2018-04-18 06:42] LABS: CREATININE 1.59 mg/dL (0.70-1.30)
[2018-04-18 06:43] LABS: BASO # 0.1 10*3/uL (0.0-0.1); EOS # 0.3 10*3/uL (0.0-0.4); EOS % 3.8 % (1.0-4.0); HEMATOCRIT 36.6 % (42.0-52.0); HEMOGLOBIN 11.5 g/dl (14.0-18.0); LYMPH # 1.8 10*3/uL (1.3-4.4); LYMPH % 22.2 % (27.0-41.0); MEAN CELL VOLUME 95.1 fl (80.0-94.0); MEAN CORPUSCULAR HGB 29.9 pg (27.0-31.0); MEAN CORPUSCULAR HGB CONC 31.4 g/dl (33.0-37.0); MEAN PLATELET VOLUME 9.9 fl (9.6-12.3); NEUT # 4.8 10*3/uL (2.3-7.9); NEUT % 59.5 % (47.0-73.0); PLATELET COUNT AUTOMATED 271 10*3/uL (130-400); RED BLOOD COUNT 3.85 10*6/uL (4.50-5.90); RED CELL DISTRI WIDTH 14.4 % (0-14.5); WHITE BLOOD COUNT 8.1 10*3/uL (4.8-10.8)
[2018-04-18 08:00] VITALS: BP 126/66
[2018-04-18 12:00] VITALS: BP 100/76; BP 120/73
[2018-04-18 16:00] VITALS: BP 138/88
[2018-04-18 20:00] VITALS: BP 114/88
[2018-04-19] VITALS: BP 115/77; BP 130/73
[2018-04-19 06:58] LABS: ALBUMIN 3.3 gm/dl (3.1-4.5); CREATININE 1.76 mg/dL (0.70-1.30); POTASSIUM 2.8 mmol/L (3.5-5.1)
[2018-04-19 08:00] VITALS: BP 130/70
[2018-04-19 09:04] LABS: ABG BASE EXCESS 13.5 mmol/L (-2.0-2.0); ABG HCO3 40.8 mmol/l (22-26); ABG O2 SATURATION 94.3 % (95-97); ARTERIAL BLOOD GAS PCO2 67.1 mmHg (35-45); ARTERIAL BLOOD GAS PH 7.401 (7.35-7.45); ARTERIAL BLOOD GAS PO2 72.1 mmHg (80-90)
[2018-04-19 12:00] VITALS: BP 132/84
[2018-04-19 16:00] VITALS: BP 129/77
[2018-04-19 20:00] VITALS: BP 113/81
[2018-04-19 21:29] LABS: BILIRUBIN NEGATIVE (NEGATIVE); BLOOD NEGATIVE (NEGATIVE); CLARITY CLEAR (CLEAR); COLOR YELLOW (YELLOW); GLUCOSE TRACE (NEGATIVE); KETONE NEGATIVE (NEGATIVE); LEUKO ESTERASE TRACE (NEGATIVE); NITRITE NEGATIVE (NEGATIVE); PH 5.5 (5.0-9.0); SPECIFIC GRAVITY 1.015 (1.005-1.030); UROBILINOGEN 0.2 E.U./dl (0.2-1.0)
[2018-04-19 21:41] LABS: BACTERIA TRACE; WBC 16-20 wbc/hpf (0-5)
[2018-04-20] VITALS: BP 114/64
[2018-04-20 07:56] LABS: ALBUMIN 3.2 gm/dl (3.1-4.5); CREATININE 1.91 mg/dL (0.70-1.30); POTASSIUM 3.3 mmol/L (3.5-5.1)
[2018-04-20 08:00] VITALS: BP 122/61
[2018-04-20 12:00] VITALS: BP 119/62
[2018-04-20 16:00] VITALS: BP 108/58
[2018-04-20 20:00] VITALS: BP 128/94
[2018-04-21] VITALS: BP 125/87
[2018-04-21 06:43] LABS: ALBUMIN 3.2 gm/dl (3.1-4.5); CREATININE 1.91 mg/dL (0.70-1.30); POTASSIUM 3.3 mmol/L (3.5-5.1); TOTAL PROTEIN 7.2 gm/dL (6.4-8.2)
[2018-04-21 08:00] VITALS: BP 146/69
[2018-04-21 12:00] VITALS: BP 129/53
== END 2018-04-21 16:56 | disposition home health service (06) | DRG 871 ==
LOC: ED 15:05 → 4E 16:16 → EDHOLD 16:16 → ICCU 16:16 → 4E 04-17 18:10
PROVIDERS: Emergency Medicine; Internal Medicine; Internal Medicine Cardiovascular Disease; Internal Medicine Critical Care Medicine; Internal Medicine Nephrology; Student in an Organized Health Care Education/Training Program; ADMIT Internal Medicine
PROC: 5A09357 Assistance with Respiratory Ventilation, Less than 24 Consecutive Hours, Continuous Positive Airway Pressure (ICD-10-PCS; principal; 2018-04-09)
PROC: 0HBRXZZ Excision of Toe Nail, External Approach (ICD-10-PCS; 2018-04-11)
PROC: 5A09357 Assistance with Respiratory Ventilation, Less than 24 Consecutive Hours, Continuous Positive Airway Pressure (ICD-10-PCS; 2018-04-11)
PROC: 5A09357 Assistance with Respiratory Ventilation, Less than 24 Consecutive Hours, Continuous Positive Airway Pressure (ICD-10-PCS; 2018-04-12)
PROC: 5A09357 Assistance with Respiratory Ventilation, Less than 24 Consecutive Hours, Continuous Positive Airway Pressure (ICD-10-PCS; 2018-04-13)
PROC: 5A09357 Assistance with Respiratory Ventilation, Less than 24 Consecutive Hours, Continuous Positive Airway Pressure (ICD-10-PCS; 2018-04-14)
PROC: 5A09357 Assistance with Respiratory Ventilation, Less than 24 Consecutive Hours, Continuous Positive Airway Pressure (ICD-10-PCS; 2018-04-15)
PROC: 5A09357 Assistance with Respiratory Ventilation, Less than 24 Consecutive Hours, Continuous Positive Airway Pressure (ICD-10-PCS; 2018-04-16)
PROC: 5A09357 Assistance with Respiratory Ventilation, Less than 24 Consecutive Hours, Continuous Positive Airway Pressure (ICD-10-PCS; 2018-04-18)
PROC: 5A09357 Assistance with Respiratory Ventilation, Less than 24 Consecutive Hours, Continuous Positive Airway Pressure (ICD-10-PCS; 2018-04-19)
PROC: 5A09357 Assistance with Respiratory Ventilation, Less than 24 Consecutive Hours, Continuous Positive Airway Pressure (ICD-10-PCS; 2018-04-20)
DX: A41.9 Sepsis, unspecified organism (principal); N17.0 Acute kidney failure with tubular necrosis; J96.22 Acute and chronic respiratory failure with hypercapnia; J96.21 Acute and chronic respiratory failure with hypoxia; I50.33 Acute on chronic diastolic (congestive) heart failure; L03.115 Cellulitis of right lower limb; J44.1 Chronic obstructive pulmonary disease with (acute) exacerbation; R18.8 Other ascites; L03.116 Cellulitis of left lower limb; E87.4 Mixed disorder of acid-base balance; Z68.41 Body mass index [BMI] 40.0-44.9, adult; E87.5 Hyperkalemia; E80.6 Other disorders of bilirubin metabolism; D53.9 Nutritional anemia, unspecified; D72.810 Lymphocytopenia; B35.1 Tinea unguium; E87.6 Hypokalemia; E11.40 Type 2 diabetes mellitus with diabetic neuropathy, unspecified; I48.91 Unspecified atrial fibrillation; E66.01 Morbid (severe) obesity due to excess calories; G47.33 Obstructive sleep apnea (adult) (pediatric); N40.0 Benign prostatic hyperplasia without lower urinary tract symptoms; I25.10 Atherosclerotic heart disease of native coronary artery without angina pectoris; M19.90 Unspecified osteoarthritis, unspecified site; R31.9 Hematuria, unspecified; I11.0 Hypertensive heart disease with heart failure; E83.42 Hypomagnesemia; K76.0 Fatty (change of) liver, not elsewhere classified; K80.20 Calculus of gallbladder without cholecystitis without obstruction; R91.1 Solitary pulmonary nodule; I89.0 Lymphedema, not elsewhere classified; E78.2 Mixed hyperlipidemia; E11.65 Type 2 diabetes mellitus with hyperglycemia; T50.2X5A Adverse effect of carbonic-anhydrase inhibitors, benzothiadiazides and other diuretics, initial encounter; Z91.030 Bee allergy status; Z88.0 Allergy status to penicillin; Z88.8 Allergy status to other drugs, medicaments and biological substances; Z91.048 Other nonmedicinal substance allergy status; Z86.73 Personal history of transient ischemic attack (TIA), and cerebral infarction without residual deficits; Z87.442 Personal history of urinary calculi; Z90.49 Acquired absence of other specified parts of digestive tract; Z95.5 Presence of coronary angioplasty implant and graft; Z87.891 Personal history of nicotine dependence; Z82.49 Family history of ischemic heart disease and other diseases of the circulatory system; Z83.3 Family history of diabetes mellitus; Z79.82 Long term (current) use of aspirin; Z79.899 Other long term (current) drug therapy; Z79.4 Long term (current) use of insulin; Y92.89 Other specified places as the place of occurrence of the external cause